=== PATIENT | female | born 1985 | race African-American/Black ===

== ENCOUNTER 2016-03-26 22:13 | Emergency (ER) | payer SELFPAY ==
[~2016-03-26] VITALS: Ht 162.6 cm; Wt 74.8 kg
[~2016-03-26 22:13] MED LIST: HYDR-971 PO; IBUP-1060 PO; PRED20TA PO
[2016-03-26 22:20] VITALS: BP 125/75
[2016-03-26] MEDS ORDERED: HYDROCODONE/APAP 5/325MG TABLET. PO ONE (23:00)
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
--- NOTE | 2016-03-27 07:35 | RAD ---
Indication: Chest pain. Time of exam 2302 hours. Comparison is made with prior chest from 03/25/2006. FINDINGS: The heart size is normal. The lungs are clear. No pleural effusion or pneumothorax is identified. The pulmonary vascularity is normal. IMPRESSION: No acute abnormality detected.
[2016-03-27] MEDS ORDERED: HYDR-2666 PO (12:28)
== END 2016-03-26 23:24 | disposition left against medical advice (07) ==
LOC: EEVIPCON 22:13 → ER 22:13
DX: S09.93XA Unspecified injury of face, initial encounter (principal); H92.02 Otalgia, left ear; Y04.0XXA Assault by unarmed brawl or fight, initial encounter; Y93.89 Activity, other specified; Y92.89 Other specified places as the place of occurrence of the external cause; Y99.8 Other external cause status
CPT/HCPCS: 70450; 70486; 71010; 99284-25

== ENCOUNTER 2016-03-27 09:45 | Emergency (ER) | payer SELFPAY ==
[2016-03-27 10:33] VITALS: BP 131/76
[2016-03-27] MEDS ORDERED: HYDROCODONE/APAP 5/325MG TABLET. PO ONE (11:30)
[2016-03-27] MEDS ORDERED: HYDR-2666 PO (12:28)
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
== END 2016-03-27 12:40 | disposition home or self-care (01) ==
LOC: ER 09:45
DX: S09.8XXA Other specified injuries of head, initial encounter (principal); F17.200 Nicotine dependence, unspecified, uncomplicated; Y08.89XA Assault by other specified means, initial encounter; Y93.89 Activity, other specified; Y92.89 Other specified places as the place of occurrence of the external cause; Y99.8 Other external cause status
CPT/HCPCS: 99283

== ENCOUNTER 2016-06-29 17:02 | Emergency (ER) | payer MEDICAID, OTHER ==
[~2016-06-29] VITALS: Ht 162.6 cm; Wt 63.5 kg
[~2016-06-29 17:02] MED LIST changes: +HYDR-2666 PO
[2016-06-29 17:17] VITALS: BP 125/65
[2016-06-29] MEDS ORDERED: ACETAMINOPHEN 500 MG TABLET PO ONE (17:45)
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
[2016-06-29] MEDS ORDERED: CYCLOBENZAPRINE 10 MG TABLET. PO ONE (18:30)
[2016-06-29] MEDS ORDERED: CYCL10TA2 PO (18:32)
== END 2016-06-29 18:43 | disposition home or self-care (01) ==
LOC: ER 17:02
DX: S13.9XXA Sprain of joints and ligaments of unspecified parts of neck, initial encounter (principal); R51 Headache; V49.59XA Passenger injured in collision with other motor vehicles in traffic accident, initial encounter; Y93.89 Activity, other specified; Y92.89 Other specified places as the place of occurrence of the external cause; Y99.8 Other external cause status
CPT/HCPCS: 70450; 81025; 99284-25

== ENCOUNTER 2017-01-10 08:56 | Emergency (ER) | payer OTHER ==
[~2017-01-10] VITALS: Ht 160 cm; Wt 63.5 kg
[~2017-01-10 08:56] MED LIST changes: +CYCL10TA2 PO; -HYDR-2666 PO; +HYDR-2758 PO
--- NOTE | 2017-01-10 09:12 | PHYS DOC ---
Past Medical History Past Medical History: Other Additional Past Medical Histor: CHRONIC HIVES Past Surgical History: Alcohol Use: Occasionally Drug Use: None Adult General Chief Complaint Chief Complaint: VAGINAL BLEEDING HPI HPI Patient is a 31 year old female with a history of ovarian cysts presents to the ED complaining of vaginal bleeding x 1 days. LMP 12/23/16. Complains of lower abdominal cramping and vaginal bleeding. Describes the pain as cramping. Rates the pain as 6/10. Passed some clots this morning. States she had her yearly check-up 2 weeks ago and everything came back normal. Denies STD exposure , dizziness, weakness, chest pain, shortness of breath, weakness, diarrhea. Review of Systems Review of Systems Constitutional: Denies fever or chills [] Eyes: Denies change in visual acuity, redness, or eye pain [] HENT: Denies nasal congestion or sore throat [] Respiratory: Denies cough or shortness of breath [] Cardiovascular: No additional information not addressed in HPI [] GI: Complains of abdominal pain. Denies nausea, vomiting, bloody stools or diarrhea [] : Complains of vaginal bleeding. Denies dysuria or hematuria [] Musculoskeletal: Denies back pain or joint pain [] Integument: Denies rash or skin lesions [] Neurologic: Denies headache, focal weakness or sensory changes [] Endocrine: Denies polyuria or polydipsia [] All other systems were reviewed and found to be within normal limits, except as documented in this note. Current Medications Current Medications Current Medications Medications (Trade) Dose Ordered Sig/Sedrick Start Time Stop Time Status Last Admin Dose Admin Naproxen (Naprosyn) 500 mg 1X ONCE 01/10/17 10:15 01/10/17 10:16 DC 01/10/17 10:21 500 MG Allergies Allergies Allergies Coded Allergies Type Severity Reaction Last Updated Verified No Known Drug Allergies 09/16/13 No Physical Exam Physical Exam Constitutional: Well developed, well nourished, no acute distress, non-toxic appearance. [] HENT: Normocephalic, atraumatic, bilateral external ears normal, oropharynx moist, no oral exudates, nose normal. [] Eyes: PERRLA, EOMI, conjunctiva normal, no discharge. [] Neck: Normal range of motion, no tenderness, supple, no stridor. [] Cardiovascular:Heart rate regular rhythm, no murmur [] Lungs & Thorax: Bilateral breath sounds clear to auscultation [] Abdomen: Bowel sounds normal, soft, MILD SUPRAPUBIC TENDERNESS. no masses, no pulsatile masses. [] Skin: Warm, dry, no erythema, no rash. [] Back: No tenderness, no CVA tenderness. [] Extremities: No tenderness, no cyanosis, no clubbing, ROM intact, no edema. [] Neurologic: Alert and oriented X 3, normal motor function, normal sensory function, no focal deficits noted. [] Psychologic: Affect normal, judgement normal, mood normal. [] Current Patient Data Vital Signs Vital Signs Date Time Temp Pulse Resp B/P (MAP) Pulse Ox O2 Delivery O2 Flow Rate FiO2 01/10/17 11:08 69 20 122/78 (93) 100 Room Air 01/10/17 09:05 98.3 98.3 Lab Values Laboratory Tests Test 01/10/17 09:00 01/10/17 09:12 01/10/17 09:20 Urine Collection Type Unknown Urine Color Yellow Urine Clarity Clear Urine pH 6.0 Urine Specific [place] >=1.030 Urine Protein Negative mg/dL (NEG-TRACE) Urine Glucose (UA) Negative mg/dL (NEG) Urine Ketones (Stick) Trace mg/dL (NEG) Urine Blood Trace (NEG) Urine Nitrite Negative (NEG) Urine Bilirubin Small (NEG) Urine Urobilinogen Dipstick 0.2 mg/dL (0.2 mg/dL) Urine Leukocyte Esterase Negative (NEG) Urine RBC Occ /HPF (0-2) Urine WBC 1-4 /HPF (0-4) Urine Squamous Epithelial Cells Many /LPF Urine Bacteria Mod /HPF (0-FEW) Urine Mucus Mod /LPF POC Urine HCG, Qualitative Hcg negative (Negative) White Blood Count 7.5 x10^3/uL (4.0-11.0) Red Blood Count 4.14 x10^6/uL (3.50-5.40) Hemoglobin 12.3 g/dL (12.0-15.5) Hematocrit 37.8 % (36.0-47.0) Mean Corpuscular Volume 91 fL (79-100) Mean Corpuscular Hemoglobin 30 pg (25-35) Mean Corpuscular Hemoglobin Concent 33 g/dL (31-37) Red Cell Distribution Width 14.2 % (11.5-14.5) Platelet Count 286 x10^3/uL (140-400) Sodium Level 140 mmol/L (136-145) Potassium Level 3.7 mmol/L (3.5-5.1) Chloride Level 104 mmol/L (98-107) Carbon Dioxide Level 28 mmol/L (21-32) Anion Gap 8 (6-14) Blood Urea Nitrogen 8 mg/dL (7-20) Creatinine 0.7 mg/dL (0.6-1.0) Estimated GFR (Cockcroft-Gault) 118.9 BUN/Creatinine Ratio 11 (6-20) Glucose Level 97 mg/dL (70-99) Calcium Level 8.9 mg/dL (8.5-10.1) Total Bilirubin 0.2 mg/dL (0.2-1.0) Aspartate Amino Transferase (AST) 15 U/L (15-37) Alanine Aminotransferase (ALT) 16 U/L (14-59) Alkaline Phosphatase 90 U/L (46-116) Total Protein 7.3 g/dL (6.4-8.2) Albumin 3.5 g/dL (3.4-5.0) Albumin/Globulin Ratio 0.9 (1.0-1.7) L Laboratory Tests 01/10/17 09:20 Laboratory Tests 01/10/17 09:20 EKG EKG [] Radiology/Procedures Radiology/Procedures PROCEDURE: PELVIS W/TV EXAM: Pelvic sonogram. HISTORY: Ovarian cyst. Vaginal bleeding. TECHNIQUE: Transabdominal and transvaginal sonographic imaging of the pelvis was performed. COMPARISON: 09/16/2013. FINDINGS: The uterus measures 10.0 x 4.8 x 6.0 cm. The endometrial stripe measures 5.7 mm in thickness. The right ovary measures 4.2 x 2.6 x 2.6 cm. The left ovary measures 4.3 x 2.2 x 2.7 cm. There is normal blood flow within both ovaries. There are small ovarian antral follicles. There is no pelvic free fluid. There may be a tiny nabothian cyst within the cervix. IMPRESSION: Relatively unremarkable pelvic sonogram. No ovarian cyst is seen and the endometrial stripe is normal in thickness. [] Course & Med Decision Making Course & Med Decision Making Pertinent Labs and Imaging studies reviewed. (See chart for details) []Discussed lab and ultrasound findings with patient. Patient's pain improved. Vital stable, no acute distress. On reexamination, abdomen is soft nontender nondistended. No peritoneal signs. Discussed follow-up with OIL SPREADER OPERATOR early next week. Tolerating PO. Provided contact information/education. Discussed reasons to return to the ED. Patient understands and agrees with plan. Dragon Disclaimer Dragon Disclaimer This electronic medical record was generated, in whole or in part, using a voice recognition dictation system. Departure Departure Impression: Primary Impression: Dysfunctional uterine bleeding Disposition: HOME, SELF-CARE Condition: IMPROVED Referrals: NO PCP (PCP) RONALDO ABBASI MD Patient Instructions: Uterine Bleeding, Dysfunctional Scripts Ondansetron (ZOFRAN ODT) 4 Mg Tab.rapdis 1 TAB SL Q8HRS, #15 TAB Prov: HERNÁN FISHER 01/10/17 Naproxen (NAPROSYN) 500 Mg Tablet 500 MG PO BID, #20 TAB Prov: HERNÁN FISHER 01/10/17 HERNÁN FISHER Jan 10, 2017 09:12
[2017-01-10 09:19] LABS: BILIRUBIN,URINE SMALL (NEG); GLUCOSE,URINE NEGATIVE (NEG); NITRITE,URINE NEGATIVE (NEG); PROTEIN,URINE NEGATIVE (NEG-TRACE); UROBILINOGEN,URINE 0.2 mg/dL (0.2 mg/dL)
[2017-01-10 09:29] LABS: BACTERIA,URINE MOD /HPF (0-FEW); RBC,URINE OCC /HPF (0-2); SQUAMOUS EPITHELIAL CELL,UR MANY /LPF
[2017-01-10 09:35] LABS: HEMATOCRIT 37.8 % (36.0-47.0); HEMOGLOBIN 12.3 g/dL (12.0-15.5); RED BLOOD COUNT 4.14 x10^6/uL (3.50-5.40); RED CELL DISTRIBUTION WIDTH 14.2 % (11.5-14.5); WHITE BLOOD COUNT 7.5 x10^3/uL (4.0-11.0)
[2017-01-10 09:40] LABS: CALCIUM 8.9 mg/dL (8.5-10.1); CREATININE 0.7 mg/dL (0.6-1.0); GFR 118.9; POTASSIUM 3.7 mmol/L (3.5-5.1)
[2017-01-10 09:46] LABS: ALBUMIN 3.5 g/dL (3.4-5.0); ALBUMIN/GLOBULIN RATIO 0.9 (1.0-1.7); TOTAL BILIRUBIN 0.2 mg/dL (0.2-1.0); TOTAL PROTEIN 7.3 g/dL (6.4-8.2)
[2017-01-10] MEDS ORDERED: NAPROXEN 500 MG TABLET PO ONE (10:15)
--- NOTE | 2017-01-10 10:55 | RAD ---
EXAM: Pelvic sonogram. HISTORY: Ovarian cyst. Vaginal bleeding. TECHNIQUE: Transabdominal and transvaginal sonographic imaging of the pelvis was performed. COMPARISON: 09/16/2013. FINDINGS: The uterus measures 10.0 x 4.8 x 6.0 cm. The endometrial stripe measures 5.7 mm in thickness. The right ovary measures 4.2 x 2.6 x 2.6 cm. The left ovary measures 4.3 x 2.2 x 2.7 cm. There is normal blood flow within both ovaries. There are small ovarian antral follicles. There is no pelvic free fluid. There may be a tiny nabothian cyst within the cervix. IMPRESSION: Relatively unremarkable pelvic sonogram. No ovarian cyst is seen and the endometrial stripe is normal in thickness.
[2017-01-10] MEDS ORDERED: ONDA4TAB10 SL (11:07)
[2017-01-10] MEDS ORDERED: NAPR500T PO (11:07)
[2017-01-10 11:08] VITALS: BP 122/78
== END 2017-01-10 11:11 | disposition home or self-care (01) ==
LOC: ER 08:56
DX: N93.8 Other specified abnormal uterine and vaginal bleeding (principal); R10.30 Lower abdominal pain, unspecified
CPT/HCPCS: 36415; 76830; 76856; 80053; 81001; 81025; 85027; 87491; 87591; 99285-25

== ENCOUNTER 2017-01-27 08:07 | Emergency (ER) | payer OTHER ==
[~2017-01-27] VITALS: Ht 160 cm; Wt 63.5 kg
[~2017-01-27 08:07] MED LIST changes: +NAPR500T PO; +ONDA4TAB10 SL
[2017-01-27] MEDS ORDERED: KETOROLAC 30 MG/ML INJ. IV ONE (08:30)
[2017-01-27] MEDS ORDERED: ONDANSETRON PF 4 MG/2 ML VIAL. IV ONE (08:30)
[2017-01-27 08:42] LABS: BILIRUBIN,URINE NEGATIVE (NEG); GLUCOSE,URINE NEGATIVE (NEG); NITRITE,URINE NEGATIVE (NEG); PH,URINE 5.5; PROTEIN,URINE NEGATIVE (NEG-TRACE); UROBILINOGEN,URINE 0.2 mg/dL (0.2 mg/dL)
--- NOTE | 2017-01-27 08:49 | PHYS DOC ---
Past Medical History Past Medical History: Other Additional Past Medical Histor: CHRONIC HIVES, OVARIAN CYSTS Past Surgical History: Additional Information: "Wearing the patch. Trying to quit smoking." Alcohol Use: Occasionally Drug Use: None Adult General Chief Complaint Chief Complaint: ABDOMINAL PAIN HPI HPI Patient is a 31 year old female with history of ovarian cyst who presents today with 8 out of 10 pulling and stretching pain on the right lower quadrant radiating to the right low back that has been going on since January 20, 2017. Patient denies any known injury. Denies any vaginal bleeding. Denies any urgency frequency or dysuria. She states she could be because she has been trying to be , she is a . She has not missed her menstrual cycle. She states she actually bled twice in December. She states she had a full cycle that ended January 11 then had spotting on January 20, 2017. Patient denies any concerns for STDs. Denies any unusual vaginal discharge. She states she was nauseated 2 days ago and had a subjective fever. Review of Systems Review of Systems Constitutional: Reports subjective fever 2 days ago. Eyes: Denies change in visual acuity, redness, or eye pain [] HENT: Denies nasal congestion or sore throat [] Respiratory: Denies cough or shortness of breath [] Cardiovascular: No additional information not addressed in HPI [] GI: Reports right lower quadrant pulling and stretching pain, and nausea, denies vomiting, bloody stools or diarrhea [] : Denies dysuria or hematuria [] Musculoskeletal: Denies back pain or joint pain [] Integument: Denies rash or skin lesions [] Neurologic: Denies headache, focal weakness or sensory changes [] All other systems were reviewed and found to be within normal limits, except as documented in this note. Current Medications Current Medications Current Medications Medications (Trade) Dose Ordered Sig/Sedrick Start Time Stop Time Status Last Admin Dose Admin Info (Do NOT chart on this entry -- for MONITORING) 1 each PRN DAILY PRN 01/27/17 09:15 01/27/17 16:38 DC Iohexol (Omnipaque 300 Mg/ml) 75 ml 1X ONCE 01/27/17 09:00 01/27/17 09:01 DC 01/27/17 09:39 75 ML Ketorolac Tromethamine (Toradol) 30 mg 1X ONCE 01/27/17 08:30 01/27/17 08:32 DC 01/27/17 09:32 30 MG Ondansetron HCl (Zofran) 4 mg 1X ONCE 01/27/17 08:30 01/27/17 08:32 DC 01/27/17 09:31 4 MG Allergies Allergies Allergies Coded Allergies Type Severity Reaction Last Updated Verified No Known Drug Allergies 09/16/13 No Physical Exam Physical Exam Constitutional: Well developed, well nourished, no acute distress, non-toxic appearance. [] HENT: Normocephalic, atraumatic, bilateral external ears normal, oropharynx moist, no oral exudates, nose normal. [] Eyes: PERRLA, EOMI, conjunctiva normal, no discharge. [] Neck: Normal range of motion, no tenderness, supple, no stridor. [] Cardiovascular:Heart rate regular rhythm, no murmur [] Lungs & Thorax: Bilateral breath sounds clear to auscultation [] Abdomen: Bowel sounds normal, soft, no tenderness, no masses, no pulsatile masses. [] Pelvic exam External pelvic appears normal, cervix is closed, no CMT, no adnexal tenderness , small amount of white discharge in the vaginal vault Skin: Warm, dry, no erythema, no rash. [] Back: No tenderness, no CVA tenderness. [] Extremities: No tenderness, no cyanosis, no clubbing, ROM intact, no edema. [] Neurologic: Alert and oriented X 3, normal motor function, normal sensory function, no focal deficits noted. [] Psychologic: Affect normal, judgement normal, mood normal. [] Current Patient Data Vital Signs Vital Signs Date Time Temp Pulse Resp B/P (MAP) Pulse Ox O2 Delivery O2 Flow Rate FiO2 01/27/17 11:15 65 18 100/52 (68) 98 Room Air 01/27/17 08:16 98.4 98.4 Lab Values Laboratory Tests Test 01/27/17 08:15 01/27/17 08:32 01/27/17 09:22 Urine Collection Type Void Urine Color Yellow Urine Clarity Clear Urine pH 5.5 Urine Specific [place] 1.010 Urine Protein Negative mg/dL (NEG-TRACE) Urine Glucose (UA) Negative mg/dL (NEG) Urine Ketones (Stick) Negative mg/dL (NEG) Urine Blood Negative (NEG) Urine Nitrite Negative (NEG) Urine Bilirubin Negative (NEG) Urine Urobilinogen Dipstick 0.2 mg/dL (0.2 mg/dL) Urine Leukocyte Esterase Negative (NEG) Urine RBC Occ /HPF (0-2) Urine WBC Occ /HPF (0-4) Urine Squamous Epithelial Cells Mod /LPF Urine Bacteria Few /HPF (0-FEW) Urine Mucus Slight /LPF Urine Opiates Screen Neg (NEG) Urine Methadone Screen Neg (NEG) Urine Barbiturates Neg (NEG) Urine Phencyclidine Screen Neg (NEG) Urine Amphetamine/Methamphetamine Neg (NEG) Urine Benzodiazepines Screen Pos (NEG) Urine Cocaine Screen Pos (NEG) Urine Cannabinoids Screen Neg (NEG) Urine Ethyl Alcohol Neg (NEG) POC Urine HCG, Qualitative Hcg negative (Negative) White Blood Count 7.3 x10^3/uL (4.0-11.0) Red Blood Count 4.24 x10^6/uL (3.50-5.40) Hemoglobin 12.5 g/dL (12.0-15.5) Hematocrit 38.5 % (36.0-47.0) Mean Corpuscular Volume 91 fL (79-100) Mean Corpuscular Hemoglobin 30 pg (25-35) Mean Corpuscular Hemoglobin Concent 33 g/dL (31-37) Red Cell Distribution Width 14.7 % (11.5-14.5) H Platelet Count 280 x10^3/uL (140-400) Neutrophils (%) (Auto) 60 % (31-73) Lymphocytes (%) (Auto) 30 % (24-48) Monocytes (%) (Auto) 6 % (0-9) Eosinophils (%) (Auto) 4 % (0-3) H Basophils (%) (Auto) 1 % (0-3) Neutrophils # (Auto) 4.4 x10^3uL (1.8-7.7) Lymphocytes # (Auto) 2.2 x10^3/uL (1.0-4.8) Monocytes # (Auto) 0.4 x10^3/uL (0.0-1.1) Eosinophils # (Auto) 0.3 x10^3/uL (0.0-0.7) Basophils # (Auto) 0.0 x10^3/uL (0.0-0.2) Sodium Level 138 mmol/L (136-145) Potassium Level 4.1 mmol/L (3.5-5.1) Chloride Level 104 mmol/L (98-107) Carbon Dioxide Level 25 mmol/L (21-32) Anion Gap 9 (6-14) Blood Urea Nitrogen 7 mg/dL (7-20) Creatinine 0.6 mg/dL (0.6-1.0) Estimated GFR (Cockcroft-Gault) 142.0 BUN/Creatinine Ratio 12 (6-20) Glucose Level 99 mg/dL (70-99) Calcium Level 9.3 mg/dL (8.5-10.1) Total Bilirubin 0.2 mg/dL (0.2-1.0) Aspartate Amino Transferase (AST) 13 U/L (15-37) L Alanine Aminotransferase (ALT) 19 U/L (14-59) Alkaline Phosphatase 85 U/L (46-116) Total Protein 7.8 g/dL (6.4-8.2) Albumin 3.7 g/dL (3.4-5.0) Albumin/Globulin Ratio 0.9 (1.0-1.7) L Lipase 102 U/L (73-393) Ethyl Alcohol Level < 10 mg/dL (0-10) Laboratory Tests 01/27/17 09:22 Laboratory Tests 01/27/17 09:22 Microbiology 01/27/17 Wet Prep - Final, Complete EKG EKG [] Radiology/Procedures Radiology/Procedures []PROCEDURE: CT ABD PELV W/ IV CONTRST ONLY CT of the abdomen and pelvis with contrast, 01/27/2017: History: Right lower quadrant and pelvic pain Multidetector CT imaging was performed following an IV bolus injection of iodinated contrast material. No oral contrast material was administered for this study. No hepatic abnormality is detected. The gallbladder is unremarkable. No pancreatic abnormality is seen. The spleen is of normal size. The kidneys show no evidence of obstruction or mass. The abdominal aorta is unremarkable. No abdominal or pelvic adenopathy is seen. The bowel loops are not dilated. The cecum is low-lying. A portion of the appendix is visualized and it shows no abnormality. No pericecal inflammatory process is seen. A 19 mm area of irregular rim-like enhancement is noted in the left adnexa. This is presumably an ovarian cyst. No free air or significant free fluid is evident in the abdomen or pelvis. IMPRESSION: 1. Small left ovary and cyst. 2. No acute abdominal or pelvic abnormality is detected. PQRS Compliance Statement: One or more of the following individualized dose reduction techniques were utilized for this examination: 1. Automated exposure control 2. Adjustment of the mA and/or kV according to patient size 3. Use of iterative reconstruction technique DICTATED and SIGNED BY: CAROLIN MERCHANT MD DATE: 01/27/17 1004 CC: JABIER STEWART APRN; NO PCP ~ Course & Med Decision Making Course & Med Decision Making Pertinent Labs and Imaging studies reviewed. (See chart for details) Patient is in the ED with complaints of right lower quadrant pulling and stretching pain. She is also concerned she could be though she has not missed her menstrual cycle. Negative urine hCG. Labs with no acute findings. Wet prep positive for BV. Patient will be discharged with Flagyl. CT of the abdomen and pelvic was negative for any acute findings but noted for a small left ovarian cyst. Patient will be discharged with instructions to take Tylenol Motrin for her pain. Follow-up with her own doctor especially an PARAMEDICAL AIDE she sees Dr. Abbasi. Larissa Disclaimer Larissa Disclaimer This electronic medical record was generated, in whole or in part, using a voice recognition dictation system. Departure Departure Impression: Primary Impression: Left ovarian cyst Additional Impression: Bacterial vaginosis Disposition: 01 HOME, SELF-CARE Condition: STABLE Referrals: NO PCP (PCP) RONALDO ABBASI MD follow up in 1-2 weeks Patient Instructions: Abdominal Pain, Bacterial Vaginosis, [id number], Ovarian Cyst Additional Instructions: You were seen for abdominal pain. Your CT of the abdomen was noted for a small left ovarian cyst, take Tylenol/Motrin for pain or fever. You also have bacterial vaginosis, we put you on antibiotics, ensure you complete them. Follow -up with an PARAMEDICAL AIDE for the ovarian cyst in the next 1-2 weeks. Follow-up with the primary care doctor in the next 1-2 weeks. Scripts Metronidazole (FLAGYL) 500 Mg Tablet 1 TAB PO BID, #14 TAB Prov: JABIER STEWART APRN 01/27/17 Problem Qualifiers JABIER STEWART APRN Jan 27, 2017 08:49
[2017-01-27 08:54] LABS: BARBITURATES NEG (NEG); BENZODIAZEPINES POS (NEG); CANNABINOIDS NEG (NEG); COCAINE POS (NEG); METHADONE NEG (NEG); OPIATES NEG (NEG); PHENCYCLIDINE NEG (NEG)
[2017-01-27 08:56] LABS: BACTERIA,URINE FEW /HPF (0-FEW); RBC,URINE OCC /HPF (0-2); SQUAMOUS EPITHELIAL CELL,UR MOD /LPF; WBC,URINE OCC /HPF (0-4)
[2017-01-27] MEDS ORDERED: IOHEXOL 300 MG/ML 100ML VIAL. IV ONE (09:00)
[2017-01-27] MEDS ORDERED: CONTRAST GIVEN MC PRN (09:15)
[2017-01-27 09:40] LABS: BASO % 1 % (0-3); EOS % 4 % (0-3); HEMATOCRIT 38.5 % (36.0-47.0); HEMOGLOBIN 12.5 g/dL (12.0-15.5); LYMPH # 2.2 x10^3/uL (1.0-4.8); LYMPH % 30 % (24-48); MEAN CORPUSCULAR HEMOGLOBIN 30 pg (25-35); MEAN CORPUSCULAR HGB CONC 33 g/dL (31-37); MEAN CORPUSCULAR VOLUME 91 fL (79-100); MONO % 6 % (0-9); NEUT % 60 % (31-73); PLATELET COUNT 280 x10^3/uL (140-400); RED BLOOD COUNT 4.24 x10^6/uL (3.50-5.40); RED CELL DISTRIBUTION WIDTH 14.7 % (11.5-14.5); WHITE BLOOD COUNT 7.3 x10^3/uL (4.0-11.0)
[2017-01-27 10:04] LABS: CALCIUM 9.3 mg/dL (8.5-10.1); CREATININE 0.6 mg/dL (0.6-1.0); POTASSIUM 4.1 mmol/L (3.5-5.1)
[2017-01-27 10:06] LABS: ALBUMIN 3.7 g/dL (3.4-5.0); ALBUMIN/GLOBULIN RATIO 0.9 (1.0-1.7); TOTAL BILIRUBIN 0.2 mg/dL (0.2-1.0); TOTAL PROTEIN 7.8 g/dL (6.4-8.2)
--- NOTE | 2017-01-27 10:16 | RAD ---
CT of the abdomen and pelvis with contrast, 01/27/2017: History: Right lower quadrant and pelvic pain Multidetector CT imaging was performed following an IV bolus injection of iodinated contrast material. No oral contrast material was administered for this study. No hepatic abnormality is detected. The gallbladder is unremarkable. No pancreatic abnormality is seen. The spleen is of normal size. The kidneys show no evidence of obstruction or mass. The abdominal aorta is unremarkable. No abdominal or pelvic adenopathy is seen. The bowel loops are not dilated. The cecum is low-lying. A portion of the appendix is visualized and it shows no abnormality. No pericecal inflammatory process is seen. A 19 mm area of irregular rim-like enhancement is noted in the left adnexa. This is presumably an ovarian cyst. No free air or significant free fluid is evident in the abdomen or pelvis. IMPRESSION: 1. Small left ovary and cyst. 2. No acute abdominal or pelvic abnormality is detected. PQRS Compliance Statement: One or more of the following individualized dose reduction techniques were utilized for this examination: 1. Automated exposure control 2. Adjustment of the mA and/or kV according to patient size 3. Use of iterative reconstruction technique
[2017-01-27] MEDS ORDERED: METR500T PO (10:56)
[2017-01-27 11:15] VITALS: BP 100/52
== END 2017-01-27 11:25 | disposition home or self-care (01) ==
LOC: ER 08:07
DX: N83.202 Unspecified ovarian cyst, left side (principal); N76.0 Acute vaginitis; B96.89 Other specified bacterial agents as the cause of diseases classified elsewhere; F17.200 Nicotine dependence, unspecified, uncomplicated
CPT/HCPCS: 36415; 74177; 80053; 80307; 81001; 81025; 83690; 85025; 87491; 87591; 96374; 96375; 99285; G0480; J1885; J2405; Q0111; Q9967; G0479

== ENCOUNTER 2017-04-20 16:59 | Emergency (ER) | payer OTHER | END 2017-04-20 18:06 | disposition home or self-care (01) | LOC: ER 16:59 | DX: S46.911A Strain of unspecified muscle, fascia and tendon at shoulder and upper arm level, right arm, initial encounter (principal); X58.XXXA Exposure to other specified factors, initial encounter; Y93.89 Activity, other specified; Y99.8 Other external cause status; Y92.89 Other specified places as the place of occurrence of the external cause | CPT/HCPCS: 99283 ==

== ENCOUNTER 2017-04-27 07:02 | Emergency (ER) | payer OTHER ==
[2017-04-27] MEDS: ALBUTEROL SULFATE 2.5 MG/3 ML NEBU. NEB (08:06)
[2017-04-27] MEDS: predniSONE 20 MG TABLET PO (08:18)
== END 2017-04-27 08:30 | disposition home or self-care (01) ==
LOC: ER 07:02
DX: L50.8 Other urticaria (principal); E11.9 Type 2 diabetes mellitus without complications
CPT/HCPCS: 94640; 99283; J7512; J7613

== ENCOUNTER 2017-06-11 07:20 | Emergency (ER) | payer OTHER ==
[2017-06-11 07:45] LABS: URINE HCG POC HCG NEGATIVE (Negative)
[2017-06-11 07:54] LABS: ADD MAN DIFF? NO
[2017-06-11] MEDS: ONDANSETRON PF 4 MG/2 ML VIAL. IV (08:00)
[2017-06-11] MEDS: IV NORMAL SALINE 1000ML BAG 1,000 ML IV (08:00)
[2017-06-11 08:05] LABS: BASO % 1 % (0-3); BILIRUBIN,URINE NEGATIVE (NEG); CLARITY,URINE CLEAR; EOS # 0.1 x10^3/uL (0.0-0.7); EOS % 2 % (0-3); GLUCOSE,URINE NEGATIVE (NEG); HEMATOCRIT 37.7 % (36.0-47.0); HEMOGLOBIN 12.5 g/dL (12.0-15.5); LYMPH % 41 % (24-48); MEAN CORPUSCULAR HEMOGLOBIN 30 pg (25-35); MEAN CORPUSCULAR HGB CONC 33 g/dL (31-37); MEAN CORPUSCULAR VOLUME 90 fL (79-100); MONO # 0.5 x10^3/uL (0.0-1.1); MONO % 7 % (0-9); NEUT # 3.7 x10^3uL (1.8-7.7); NEUT % 50 % (31-73); NITRITE,URINE NEGATIVE (NEG); PH,URINE 6.5; PLATELET COUNT 259 x10^3/uL (140-400); PROTEIN,URINE NEGATIVE (NEG-TRACE); RED BLOOD COUNT 4.19 x10^6/uL (3.50-5.40); UROBILINOGEN,URINE 0.2 mg/dL (0.2 mg/dL); WHITE BLOOD COUNT 7.3 x10^3/uL (4.0-11.0)
[2017-06-11 08:06] LABS: ANION GAP 6 (6-14); BLOOD UREA NITROGEN 10 mg/dL (7-20); BUN/CREATININE RATIO 14 (6-20); CALCIUM 9.6 mg/dL (8.5-10.1); CARBON DIOXIDE 27 mmol/L (21-32); CHLORIDE 103 mmol/L (98-107); CREATININE 0.7 mg/dL (0.6-1.0); GFR 118.1; GLUCOSE 108 mg/dL (70-99); SODIUM 136 mmol/L (136-145)
[2017-06-11 08:15] LABS: TOTAL PROTEIN 7.7 g/dL (6.4-8.2)
[2017-06-11] MEDS ORDERED: CONTRAST GIVEN MC (08:15)
[2017-06-11 08:16] LABS: ALBUMIN 3.6 g/dL (3.4-5.0); ALBUMIN/GLOBULIN RATIO 0.9 (1.0-1.7); ALK PHOS 96 U/L (46-116); ALT (SGPT) 20 U/L (14-59); AST (SGOT) 17 U/L (15-37); TOTAL BILIRUBIN 0.2 mg/dL (0.2-1.0)
[2017-06-11 08:17] LABS: LIPASE 178 U/L (73-393)
[2017-06-11 08:22] LABS: BACTERIA,URINE FEW /HPF (0-FEW); COLOR,URINE STRAW; RBC,URINE RARE /HPF (0-2); WBC,URINE RARE /HPF (0-4)
[2017-06-11 08:23] LABS: SQUAMOUS EPITHELIAL CELL,UR FEW /LPF
[2017-06-11] MEDS: IOHEXOL 300 MG/ML 100ML VIAL. IV (08:35)
== END 2017-06-11 09:39 | disposition home or self-care (01) ==
LOC: ER 07:20
DX: R11.2 Nausea with vomiting, unspecified (principal); M54.5 Low back pain; R10.31 Right lower quadrant pain; E11.9 Type 2 diabetes mellitus without complications; Z98.890 Other specified postprocedural states
CPT/HCPCS: 36415; 74177; 80053; 81001; 81025; 83690; 84702; 85025; 96361; 96374; 99285-25; J2405; J7030; Q9967

== ENCOUNTER 2017-10-05 10:15 | Emergency (ER) | payer OTHER ==
[2017-10-05 10:36] LABS: URINE HCG POC HCG NEGATIVE (Negative)
[2017-10-05 10:43] LABS: ADD MAN DIFF? NO
[2017-10-05 10:50] LABS: BASO # 0.1 x10^3/uL (0.0-0.2); BASO % 1 % (0-3); EOS # 0.2 x10^3/uL (0.0-0.7); EOS % 2 % (0-3); HEMATOCRIT 40.6 % (36.0-47.0); HEMOGLOBIN 13.5 g/dL (12.0-15.5); LYMPH # 3.3 x10^3/uL (1.0-4.8); LYMPH % 38 % (24-48); MEAN CORPUSCULAR HEMOGLOBIN 30 pg (25-35); MEAN CORPUSCULAR HGB CONC 33 g/dL (31-37); MEAN CORPUSCULAR VOLUME 90 fL (79-100); MONO # 0.4 x10^3/uL (0.0-1.1); MONO % 5 % (0-9); NEUT # 4.7 x10^3uL (1.8-7.7); NEUT % 54 % (31-73); PLATELET COUNT 263 x10^3/uL (140-400); WHITE BLOOD COUNT 8.7 x10^3/uL (4.0-11.0)
[2017-10-05 10:59] LABS: ANION GAP 11 (6-14); BLOOD UREA NITROGEN 6 mg/dL (7-20); BUN/CREATININE RATIO 8 (6-20); CALCIUM 8.8 mg/dL (8.5-10.1); CARBON DIOXIDE 26 mmol/L (21-32); CHLORIDE 103 mmol/L (98-107); CREATININE 0.8 mg/dL (0.6-1.0); GFR 101.2; GLUCOSE 118 mg/dL (70-99); POTASSIUM 3.9 mmol/L (3.5-5.1); SODIUM 140 mmol/L (136-145)
[2017-10-05] MEDS: fentaNYL PF VIAL 100 MCG/2 ML VIAL IV (10:59)
[2017-10-05] MEDS: KETOROLAC 30 MG/ML INJ. IV (11:00)
[2017-10-05] MEDS: ONDANSETRON PF 4 MG/2 ML VIAL. IV (11:00)
[2017-10-05 11:02] LABS: ALBUMIN 3.8 g/dL (3.4-5.0); ALK PHOS 88 U/L (46-116); ALT (SGPT) 19 U/L (14-59); AST (SGOT) 15 U/L (15-37); TOTAL BILIRUBIN 0.2 mg/dL (0.2-1.0); TOTAL PROTEIN 7.6 g/dL (6.4-8.2)
[2017-10-05 11:32] LABS: BILIRUBIN,URINE NEGATIVE (NEG); CLARITY,URINE CLEAR; COLOR,URINE YELLOW; GLUCOSE,URINE NEGATIVE (NEG); NITRITE,URINE NEGATIVE (NEG); PH,URINE 5.5; PROTEIN,URINE NEGATIVE (NEG-TRACE); UROBILINOGEN,URINE 0.2 mg/dL (0.2 mg/dL)
[2017-10-05 11:39] LABS: BARBITURATES NEG (NEG); BENZODIAZEPINES POS (NEG); CANNABINOIDS NEG (NEG); COCAINE POS (NEG); METHADONE NEG (NEG); OPIATES NEG (NEG); PHENCYCLIDINE NEG (NEG)
[2017-10-05 11:41] LABS: AMPHETAMINE/METHAMPHETAMINE NEG (NEG); ETHANOL, URINE NEG (NEG)
[2017-10-05 11:46] LABS: SQUAMOUS EPITHELIAL CELL,UR MANY /LPF
[2017-10-05 11:47] LABS: BACTERIA,URINE MODERATE /HPF (0-FEW); RBC,URINE OCC /HPF (0-2)
[2017-10-05] MEDS: cefTRIAXone IM 250 MG VIAL IM (11:54)
[2017-10-05] MEDS: AZITHROMYCIN 250 MG TABLET. PO (11:54)
[2017-10-06 14:35] LABS: CHLAMYDIA PROBE Negative (Negative); GC PROBE Negative (Negative)
== END 2017-10-05 12:47 | disposition home or self-care (01) ==
LOC: ER 10:15
DX: N76.0 Acute vaginitis (principal); B96.89 Other specified bacterial agents as the cause of diseases classified elsewhere; A64 Unspecified sexually transmitted disease; E11.9 Type 2 diabetes mellitus without complications
CPT/HCPCS: 36415; 80053; 80307; 81001; 81025; 85025; 87086; 87491; 87591; 96372; 96374; 96375; 99284-25; J0696; J1885; J2405; J3010; Q0111; Q0144

== ENCOUNTER 2017-11-16 07:26 | Emergency (ER) | payer OTHER ==
[~2017-11-16] VITALS: Ht 162.6 cm; Wt 63.5 kg
[~2017-11-16 07:26] MED LIST changes: +CYCL5TAB PO; +METR500T PO; +METR500T8 PO; +NAPR-683 PO; -NAPR500T PO
[2017-11-16 07:45] VITALS: BP 140/61
[2017-11-16] MEDS ORDERED: HYDR25CA PO (08:04)
[2017-11-16] MEDS ORDERED: PRED20TA PO (08:04)
--- NOTE | 2017-11-16 08:04 | PHYS DOC ---
Past Medical History Past Medical History: Diabetes-Type II, Other Additional Past Medical Histor: CHRONIC HIVES, OVARIAN CYSTS Past Surgical History: Alcohol Use: Occasionally Drug Use: None Adult General Chief Complaint Chief Complaint: SKIN PROBLEM HPI HPI Patient is a 32 year old female presented to the ER today for evaluation of itching rash that just started this morning when she woke up. Patient has this chronic condition for 2 years, she was evaluated by enamel applier already, not figure out what the cause. Patient is currently not on any medication for it. Patient denied any chest pain, no shortness of air, no fever, no cough, no throat swelling or tongue swelling. She has not taken any new medications. Review of Systems Review of Systems Constitutional: Denies fever or chills [] Eyes: Denies change in visual acuity, redness, or eye pain [] HENT: Denies nasal congestion or sore throat [] Respiratory: Denies cough or shortness of breath [] Cardiovascular: No additional information not addressed in HPI [] GI: Denies abdominal pain, nausea, vomiting, bloody stools or diarrhea [] : Denies dysuria or hematuria [] Musculoskeletal: Denies back pain or joint pain [] Integument: Positive for itching, rash. Neurologic: Denies headache, focal weakness or sensory changes [] Endocrine: Denies polyuria or polydipsia [] All other systems were reviewed and found to be within normal limits, except as documented in this note. Current Medications Current Medications Current Medications Medications (Trade) Dose Ordered Sig/Sedrick Start Time Stop Time Status Last Admin Dose Admin Diphenhydramine HCl (Benadryl) 25 mg 1X ONCE 11/16/17 08:30 11/16/17 08:31 DC 11/16/17 08:20 25 MG Methylprednisolone Sodium Succinate (SOLU-Medrol 125MG VIAL) 125 mg 1X ONCE 11/16/17 08:30 11/16/17 08:31 DC 11/16/17 08:20 125 MG Allergies Allergies Allergies Coded Allergies Type Severity Reaction Last Updated Verified No Known Drug Allergies 09/16/13 No Physical Exam Physical Exam Constitutional: Well developed, well nourished, no acute distress, non-toxic appearance. [] HENT: Normocephalic, atraumatic, bilateral external ears normal, oropharynx moist, no oral exudates, nose normal. NO TONGUE SWELLING,NO LIP SWELLING Eyes: PERRLA, EOMI, conjunctiva normal, no discharge. No eye swelling. Neck: Normal range of motion, no tenderness, supple, no stridor. [] Cardiovascular:Heart rate regular rhythm, no murmur [] Lungs & Thorax: Bilateral breath sounds clear to auscultation [] Abdomen: Bowel sounds normal, soft, no tenderness, no masses, no pulsatile masses. [] Skin: diffused hives on trunk, chest, extremities, Back: No tenderness, no CVA tenderness. [] Extremities: No tenderness, no cyanosis, no clubbing, ROM intact, no edema. [] Neurologic: Alert and oriented X 3, normal motor function, normal sensory function, no focal deficits noted. [] Psychologic: Affect normal, judgement normal, mood normal. [] Current Patient Data Vital Signs Vital Signs Date Time Temp Pulse Resp B/P (MAP) Pulse Ox O2 Delivery O2 Flow Rate FiO2 11/16/17 07:45 98.9 71 14 140/61 (87) 100 Room Air 98.9 EKG EKG [] Radiology/Procedures Radiology/Procedures [] Course & Med Decision Making Course & Med Decision Making Pertinent Labs and Imaging studies reviewed. (See chart for details) [] Dragon Disclaimer Dragon Disclaimer This electronic medical record was generated, in whole or in part, using a voice recognition dictation system. Departure Departure Impression: Primary Impression: Urticaria Disposition: 01 HOME, SELF-CARE Condition: STABLE Referrals: NO PCP (PCP) follow up with an allergy doctor for further evaluation and treatment Patient Instructions: Hives Scripts Hydroxyzine Pamoate (VISTARIL) 25 Mg Capsule 1 CAP PO TID PRN for ITCHING, #30 CAP 1 Refill Prov: ANNA PARRISH DO 11/16/17 Prednisone (PREDNISONE) 20 Mg Tablet 1 TAB PO DAILY, #10 TAB Prov: ANNA PARRISH DO 11/16/17 ANNA PARRISH DO Nov 16, 2017 08:04
[2017-11-16] MEDS ORDERED: methylPREDNISolone SOD SUCC PF 125 MG/2 ML VIAL. IM ONE (08:30)
[2017-11-16] MEDS ORDERED: diphenhydrAMINE 50 MG/ML VIAL IM ONE (08:30)
== END 2017-11-16 09:03 | disposition home or self-care (01) ==
LOC: ER 07:26
DX: L50.9 Urticaria, unspecified (principal); E11.9 Type 2 diabetes mellitus without complications
CPT/HCPCS: 96372; 99284; J1200; J2930

== ENCOUNTER 2017-11-29 12:10 | Emergency (ER) | payer OTHER ==
[~2017-11-29] VITALS: Ht 160 cm; Wt 63.5 kg
[~2017-11-29 12:10] MED LIST changes: +HYDR25CA PO
[2017-11-29 12:55] VITALS: BP 113/58
[2017-11-29] MEDS ORDERED: diphenhydrAMINE HCL 25 MG CAPSULE PO ONE ×2 (13:15)
[2017-11-29] MEDS ORDERED: FAMOTIDINE 20 MG TABLET. PO ONE ×2 (13:15)
[2017-11-29] MEDS ORDERED: methylPREDNISolone SOD SUCC PF 125 MG/2 ML VIAL. IM ONE ×2 (13:15)
[2017-11-29] MEDS ORDERED: FAMO20TA5 PO (13:25)
[2017-11-29] MEDS ORDERED: PRED-220 PO (13:25)
[2017-11-29] MEDS ORDERED: HYDR25TA PO (13:25)
--- NOTE | 2017-11-29 13:25 | PHYS DOC ---
Past Medical History Past Medical History: Diabetes-Type II, Other Additional Past Medical Histor: CHRONIC HIVES, OVARIAN CYSTS Past Surgical History: Alcohol Use: Occasionally Drug Use: None Adult General Chief Complaint Chief Complaint: SKIN PROBLEM HPI HPI Patient is a 32 year old female who presents with chronic hives. Patient states the hives usually come and go. She states this episode she noted this morning. She states she usually has to be put on prednisone to reduce some of the hives, she states she has seen a soundscriber mechanic over the hives but they could not find any cause and how to get rid of them completely. Review of Systems Review of Systems Constitutional: Denies fever or chills []] Musculoskeletal: Denies back pain or joint pain [] Integument: Reports hives. Neurologic: Denies headache, focal weakness or sensory changes [] All other systems were reviewed and found to be within normal limits, except as documented in this note. Current Medications Current Medications Current Medications Medications (Trade) Dose Ordered Sig/Sedrick Start Time Stop Time Status Last Admin Dose Admin Diphenhydramine HCl (Benadryl) 25 mg 1X ONCE 11/29/17 13:15 11/29/17 13:16 DC Famotidine (Pepcid) 20 mg 1X ONCE 11/29/17 13:15 11/29/17 13:16 DC Methylprednisolone Sodium Succinate (SOLU-Medrol 125MG VIAL) 125 mg 1X ONCE 11/29/17 13:15 11/29/17 13:16 DC Allergies Allergies Allergies Coded Allergies Type Severity Reaction Last Updated Verified No Known Drug Allergies 09/16/13 No Physical Exam Physical Exam Constitutional: Well developed, well nourished, no acute distress, non-toxic appearance. [] HENT: Normocephalic, atraumatic, bilateral external ears normal, oropharynx moist, no oral exudates, nose normal. Airway is open Eyes: PERRLA, EOMI, conjunctiva normal, no discharge. [] Neck: Normal range of motion, no tenderness, supple, no stridor. [] Cardiovascular:Heart rate regular rhythm, no murmur [] Lungs & Thorax: Bilateral breath sounds clear to auscultation [] Abdomen: Bowel sounds normal, soft, no tenderness, no masses, no pulsatile masses. [] Skin: Warm, dry, patient is covered with erythematous hives throughout her body. Back: No tenderness, no CVA tenderness. [] Extremities: No tenderness, no cyanosis, no clubbing, ROM intact, no edema. [] Neurologic: Alert and oriented X 3, normal motor function, normal sensory function, no focal deficits noted. [] Psychologic: Affect normal, judgement normal, mood normal. [] Current Patient Data Vital Signs Vital Signs Date Time Temp Pulse Resp B/P (MAP) Pulse Ox O2 Delivery O2 Flow Rate FiO2 11/29/17 12:55 98.7 93 14 113/58 (76) 99 Room Air 98.7 EKG EKG [] Radiology/Procedures Radiology/Procedures [] Course & Med Decision Making Course & Med Decision Making Pertinent Labs and Imaging studies reviewed. (See chart for details) This is a 32-year-old female patient presenting to the ED today with hives. Hives are chronic but get worse occasionally. Patient was put on prednisone which she states sometimes relieves the hives. I recommended she follows up with an allergy clinic as well as soundscriber mechanic to be tested to see what she is allergic on. Dragon Disclaimer Dragon Disclaimer This electronic medical record was generated, in whole or in part, using a voice recognition dictation system. Departure Departure Impression: Primary Impression: Hives Disposition: 01 HOME, SELF-CARE Condition: STABLE Referrals: UNKNOWN PCP NAME (PCP) ANDREW MURGUIA MD follow up in 2 weeks Patient Instructions: Hives, [id number] Additional Instructions: You were evaluated in the emergency room for chronic hives. Please follow-up with the soundscriber mechanic as well as allergy clinic to be tested to see what you' re allergic to. Take the prescribed medications as ordered. Scripts Famotidine (FAMOTIDINE) 20 Mg Tablet 20 MG PO HS, #20 TAB Prov: TERRYJABIER LINER REROLL TENDER 11/29/17 Hydroxyzine Hcl (HYDROXYZINE HCL) 25 Mg Tablet 1 TAB PO TID, #90 TAB 1 Refill Prov: JABIER STEWART APRN 11/29/17 Prednisone (PREDNISONE ) 10 Mg Tablet 10 MG PO UD for PREDNISONE TAPER, #39 TAB 0 Refills Take 3 tablets by mouth twice a day for 3 days, then take 2 tablets by mouth twice a day for 3 days, then take 1 tablet by mouth twice a day for 3 days, then take 1 tablet by mouth daily x 3 days, then stop. Prov: MUTUNGA,JABIER LINER REROLL TENDER 11/29/17 JABIER STEWART APRN Nov 29, 2017 13:25
== END 2017-11-29 13:51 | disposition home or self-care (01) ==
LOC: ER 12:10
DX: L50.8 Other urticaria (principal); E11.9 Type 2 diabetes mellitus without complications
CPT/HCPCS: 96372; 99283; J2930; Q0163

== ENCOUNTER 2017-12-14 11:08 | Emergency (ER) | payer OTHER ==
[~2017-12-14] VITALS: Ht 162.6 cm; Wt 63.5 kg
[~2017-12-14 11:08] MED LIST changes: +FAMO20TA5 PO; +HYDR25TA PO; +PRED-220 PO
[2017-12-14] MEDS ORDERED: diphenhydrAMINE HCL 25 MG CAPSULE PO ONE (11:30)
[2017-12-14] MEDS ORDERED: FAMOTIDINE 20 MG TABLET. PO ONE (11:30)
[2017-12-14] MEDS ORDERED: predniSONE 10 MG TABLET PO ONE (11:30)
[2017-12-14] MEDS ORDERED: METH4TAB2 PO (13:28)
[2017-12-14] MEDS ORDERED: OMEP20TA63 PO (13:28)
--- NOTE | 2017-12-14 13:29 | PHYS DOC ---
Past Medical History Past Medical History: Diabetes-Type II, Other Additional Past Medical Histor: CHRONIC HIVES, OVARIAN CYSTS Past Surgical History: Alcohol Use: Occasionally Drug Use: None Adult General Chief Complaint Chief Complaint: SKIN PROBLEM HPI HPI Patient is a 32 year old female who presents with widespread hives. The patient states that she has had outbreaks of these in the past and does not know the cause of the hives. She does not have any known food or drug allergies. She states that when she has had these in the past she has been on prednisone. She has not taken Benadryl or any [id number] medications. She was worried that her throat might swell and presented to the hospital. Review of Systems Review of Systems Constitutional: Denies fever or chills [] Eyes: Denies change in visual acuity, redness, or eye pain [] HENT: Denies nasal congestion or sore throat [] Respiratory: Denies cough or shortness of breath [] Cardiovascular: No additional information not addressed in HPI [] GI: Denies abdominal pain, nausea, vomiting, bloody stools or diarrhea [] : Denies dysuria or hematuria [] Musculoskeletal: Denies back pain or joint pain [] Integument: See history of present illness Neurologic: Denies headache, focal weakness or sensory changes [] Endocrine: Denies polyuria or polydipsia [] All other systems were reviewed and found to be within normal limits, except as documented in this note. Current Medications Current Medications Current Medications Medications (Trade) Dose Ordered Sig/Sedrick Start Time Stop Time Status Last Admin Dose Admin Diphenhydramine HCl (Benadryl) 50 mg 1X ONCE 12/14/17 11:30 12/14/17 11:33 DC 12/14/17 11:39 50 MG Famotidine (Pepcid) 20 mg 1X ONCE 12/14/17 11:30 12/14/17 11:33 DC 12/14/17 11:38 20 MG Prednisone (Prednisone) 50 mg 1X ONCE 12/14/17 11:30 12/14/17 11:33 DC 12/14/17 11:39 50 MG Allergies Allergies Allergies Coded Allergies Type Severity Reaction Last Updated Verified No Known Drug Allergies 09/16/13 No Physical Exam Physical Exam Constitutional: Well developed, well nourished, no acute distress, non-toxic appearance. [] HENT: Normocephalic, atraumatic, bilateral external ears normal, oropharynx moist, no oral exudates, nose normal, she is handling her secretions. [] Eyes: PERRLA, EOMI, conjunctiva normal, no discharge. [] Neck: Normal range of motion, no tenderness, supple, no stridor. [] Cardiovascular:Heart rate regular rhythm, no murmur [] Lungs & Thorax: Bilateral breath sounds clear to auscultation [] Skin: Generalized hives to patient's torso, back and bilateral upper extremities Neurologic: Alert and oriented X 3, normal motor function, normal sensory function, no focal deficits noted. [] Psychologic: Affect normal, judgement normal, mood normal. [] Current Patient Data Vital Signs Vital Signs Date Time Temp Pulse Resp B/P (MAP) Pulse Ox O2 Delivery O2 Flow Rate FiO2 12/14/17 11:16 99.2 89 18 120/77 (91) 97 Room Air 99.2 EKG EKG [] Radiology/Procedures Radiology/Procedures [] Course & Med Decision Making Course & Med Decision Making Pertinent Labs and Imaging studies reviewed. (See chart for details) [] Staff Physician Addendum: I was working in the ER during the course of this patient's visit. I was available for consultation as needed, but I was not directly involved in the care of this patient. Dragon Disclaimer Dragon Disclaimer This electronic medical record was generated, in whole or in part, using a voice recognition dictation system. Departure Departure Impression: Primary Impression: Hives Disposition: 01 HOME, SELF-CARE Condition: STABLE Referrals: UNKNOWN PCP NAME (PCP) Patient Instructions: Hives Additional Instructions: Take the prescribed medications as written. Take Benadryl scheduled for the next 2 days. If you develop shortness of air or swelling to your tongue or throat: 911 immediately. Follow-up with your primary care provider for reevaluation in 4 days if not improving. Scripts Methylprednisolone (MEDROL) 4 Mg Tab.ds.pk 1 PKG PO UD, #1 PKG Prov: FRANCK VILLANUEVA COMPUTER NUMERICAL CONTROL PROGRAMMER 12/14/17 Omeprazole Magnesium (PRILOSEC OTC) 20 Mg Tablet.dr 1 TAB PO DAILY, #30 TAB 3 Refills Prov: FRANCK VILLANUEVA COMPUTER NUMERICAL CONTROL PROGRAMMER 12/14/17 FRANCK VILLANUEVA APRN Dec 14, 2017 13:29 ROCÍO STRAUSS MD Dec 15, 2017 06:13
== END 2017-12-14 14:03 | disposition home or self-care (01) ==
LOC: ER 11:08
DX: L50.9 Urticaria, unspecified (principal); E11.9 Type 2 diabetes mellitus without complications
CPT/HCPCS: 99284; J7512; Q0163

== ENCOUNTER 2017-12-23 10:12 | Emergency (ER) | payer OTHER ==
[~2017-12-23] VITALS: Ht 162.6 cm; Wt 63.5 kg
[~2017-12-23 10:12] MED LIST changes: +METH4TAB2 PO; +OMEP20TA63 PO
[2017-12-23 10:31] VITALS: BP 125/63
[2017-12-23] MEDS ORDERED: PRED50TA PO (10:48)
[2017-12-23] MEDS ORDERED: TRIA15OI TP (10:48)
--- NOTE | 2017-12-23 10:48 | PHYS DOC ---
Past Medical History Past Medical History: Diabetes-Type II, Other Additional Past Medical Histor: CHRONIC HIVES, OVARIAN CYSTS Past Surgical History: Alcohol Use: Occasionally Drug Use: None Adult General Chief Complaint Chief Complaint: SKIN RASH/ABSCESS HPI HPI Patient is a 32 year old female who presents complaining of hives that began this morning. Patient states she has history of chronic hives and follows up with the gravel hauler. She states she typically has to get prednisone by mouth among other medications to help clear them. Patient denies any difficulty breathing. Denies any throat or tongue swelling. Review of Systems Review of Systems Constitutional: Denies fever or chills [] Eyes: Denies change in visual acuity, redness, or eye pain [] HENT: Denies nasal congestion or sore throat [] Respiratory: Denies cough or shortness of breath [] Cardiovascular: No additional information not addressed in HPI [] GI: Denies abdominal pain, nausea, vomiting, bloody stools or diarrhea [] : Denies dysuria or hematuria [] Musculoskeletal: Denies back pain or joint pain [] Integument: Reports hives Neurologic: Denies headache, focal weakness or sensory changes [] All other systems were reviewed and found to be within normal limits, except as documented in this note. Allergies Allergies Allergies Coded Allergies Type Severity Reaction Last Updated Verified No Known Drug Allergies 09/16/13 No Physical Exam Physical Exam Constitutional: Well developed, well nourished, no acute distress, non-toxic appearance. [] HENT: Normocephalic, atraumatic, bilateral external ears normal, oropharynx moist, no oral exudates, nose normal.Airway is open. Eyes: PERRLA, EOMI, conjunctiva normal, no discharge. [] Neck: Normal range of motion, no tenderness, supple, no stridor. [] Cardiovascular:Heart rate regular rhythm, no murmur [] Lungs & Thorax: Bilateral breath sounds clear to auscultation [] Abdomen: Bowel sounds normal, soft, no tenderness, no masses, no pulsatile masses. [] Skin: Warm, dry, mild amount of erythematous hives on patient's chest, bilateral upper extremities, and back, trace amount on the face Back: No tenderness, no CVA tenderness. [] Extremities: No tenderness, no cyanosis, no clubbing, ROM intact, no edema. [] Neurologic: Alert and oriented X 3, normal motor function, normal sensory function, no focal deficits noted. [] Psychologic: Affect normal, judgement normal, mood normal. [] Current Patient Data Vital Signs Vital Signs Date Time Temp Pulse Resp B/P (MAP) Pulse Ox O2 Delivery O2 Flow Rate FiO2 12/23/17 10:31 98.5 78 16 125/63 (83) 97 Room Air 98.5 EKG EKG [] Radiology/Procedures Radiology/Procedures [] Course & Med Decision Making Course & Med Decision Making Pertinent Labs and Imaging studies reviewed. (See chart for details) This is a 32-year-old female patient presenting to the ED today with hives. Patient has history of chronic hives. This episode began this morning. Patient was discharged with prednisone, encouraged to take Benadryl, she states she has a prescription for omeprazole as well. Follow-up with gravel hauler next week. Dragon Disclaimer Dragon Disclaimer This electronic medical record was generated, in whole or in part, using a voice recognition dictation system. Departure Departure Impression: Primary Impression: Hives Disposition: 01 HOME, SELF-CARE Condition: STABLE Referrals: UNKNOWN PCP NAME (PCP) ANDREW MURGUIA MD follow up in one week Patient Instructions: Hives, [id number] Additional Instructions: You were evaluated in the emergency room for hives. Continue following up with the gravel hauler. Consider taking Benadryl/cetirizine daily, continue taking omeprazole. Complete prednisone. Follow-up with your gravel hauler next week. Scripts Triamcinolone Acetonide (TRIAMCINOLONE ACETONIDE 0.1% OINT) 15 Gm Oint...g. 1 JASPER TP BID for WOUND CARE, #1 TUBE Prov: JABIER STEWART APRN 12/23/17 Prednisone (PREDNISONE) 50 Mg Tablet 1 TAB PO DAILY, #5 TAB Prov: JABIER STEWART APRN 12/23/17 JABIER STEWART APRN Dec 23, 2017 10:48
== END 2017-12-23 11:10 | disposition home or self-care (01) ==
LOC: ER 10:12
DX: L50.8 Other urticaria (principal); E11.9 Type 2 diabetes mellitus without complications
CPT/HCPCS: 99283

== ENCOUNTER 2018-03-11 17:08 | Emergency (ER) | payer SELFPAY ==
[~2018-03-11] VITALS: Ht 162.6 cm; Wt 65.8 kg
[~2018-03-11 17:08] MED LIST changes: -HYDR-2758 PO; +HYDR-2761 PO; +HYDR-3164 PO; -HYDR-971 PO; +METR-34 PO; -METR500T8 PO; +PRED50TA PO; +TRIA15OI TP
[2018-03-11 17:22] VITALS: BP 112/67
[2018-03-11] MEDS ORDERED: diphenhydrAMINE HCL 25 MG CAPSULE PO ONE (17:45)
[2018-03-11] MEDS ORDERED: methylPREDNISolone SOD SUCC PF 125 MG/2 ML VIAL. IM ONE (17:45)
[2018-03-11] MEDS ORDERED: PRED20TA PO (18:42)
--- NOTE | 2018-03-11 18:43 | PHYS DOC ---
Past Medical History Past Medical History: Diabetes-Type II, Other Additional Past Medical Histor: CHRONIC HIVES, OVARIAN CYSTS Past Surgical History: Alcohol Use: Occasionally Drug Use: None Adult General Chief Complaint Chief Complaint: ALLERGIC REACTION HPI HPI Patient is a 33 year old female who presents to the emergency department with complaints of generalized hives with itching and chest tightness. Patient reports history of these allergy symptoms. States that she usually takes benadryl for relief of the symptoms but she was out of the medication today. She denies any new meds, foods, detergents, perfumes, or environmental exposures. She denies any pain. Review of Systems Review of Systems Constitutional: Denies fever or chills [] Eyes: Denies change in visual acuity, redness, or eye pain [] HENT: Denies nasal congestion or sore throat [] Respiratory: Denies cough or shortness of breath [] Cardiovascular: No additional information not addressed in HPI [] GI: Denies abdominal pain, nausea, vomiting, or diarrhea [] Integument: See HPI Neurologic: Denies headache Complete systems were reviewed and found to be within normal limits, except as documented in this note. Current Medications Current Medications Current Medications Medications (Trade) Dose Ordered Sig/Sedrick Start Time Stop Time Status Last Admin Dose Admin Diphenhydramine HCl (Benadryl) 50 mg 1X ONCE 03/11/18 17:45 03/11/18 17:51 DC 03/11/18 18:04 50 MG Methylprednisolone Sodium Succinate (SOLU-Medrol 125MG VIAL) 125 mg 1X ONCE 03/11/18 17:45 03/11/18 17:51 DC 03/11/18 18:03 125 MG Allergies Allergies Allergies Coded Allergies Type Severity Reaction Last Updated Verified No Known Drug Allergies 09/16/13 No Physical Exam Physical Exam Constitutional: Well developed, well nourished, no acute distress, non-toxic appearance. [] HENT: Normocephalic, atraumatic, bilateral external ears normal, oropharynx moist, no oral exudates, nose normal. [] Eyes: PERRLA, , no discharge. [] Neck: Normal range of motion, no stridor. [] Cardiovascular:Heart rate regular rhythm Lungs & Thorax: Bilateral breath sounds clear to auscultation [] Skin: Warm, dry; generalized, scattered, red, raised, welts consistent with urticaria Extremities: No cyanosis, no clubbing, ROM intact, no edema. [] Neurologic: Alert and oriented X 3, no focal deficits noted. [] Psychologic: Affect normal, judgement normal, mood normal. [] Current Patient Data Vital Signs EKG EKG [] Radiology/Procedures Radiology/Procedures [] Course & Med Decision Making Course & Med Decision Making Pertinent Labs and Imaging studies reviewed. (See chart for details) [] Dragon Disclaimer Dragon Disclaimer This electronic medical record was generated, in whole or in part, using a voice recognition dictation system. Departure Departure Impression: Primary Impression: Madeleine Disposition: HOME, SELF-CARE Condition: IMPROVED Referrals: UNKNOWN PCP NAME (PCP) Patient Instructions: Madeleine, [id number] Additional Instructions: Fill prescription and use as directed. Take Benadryl every 6 hours as needed for itching. Follow up with your primary care doctor if symptoms persist, return to the ER if symptoms worsen. Scripts Prednisone (PREDNISONE) 20 Mg Tablet 2 TAB PO DAILY for 5 Days, #10 TAB 0 Refills Prov: TOMÁS GILLILAND APRN 03/11/18 TOMÁS GILLILAND APRN Mar 11, 2018 18:43
== END 2018-03-11 18:42 | disposition home or self-care (01) ==
LOC: ER 17:08
DX: L50.8 Other urticaria (principal); E11.9 Type 2 diabetes mellitus without complications; Z98.890 Other specified postprocedural states
CPT/HCPCS: 96372; 99283; J2930; Q0163

== ENCOUNTER 2018-08-11 07:02 | Emergency (ER) | payer OTHER ==
[~2018-08-11] VITALS: Ht 162.6 cm; Wt 69.9 kg
[2018-08-11] MEDS ORDERED: IV NORMAL SALINE 1000ML BAG 1,000 ML IV SCH (07:22)
[2018-08-11] MEDS ORDERED: ONDANSETRON PF 4 MG/2 ML VIAL. IV ONE (07:30)
[2018-08-11] MEDS ORDERED: KETOROLAC 30 MG/ML VIAL. IV ONE (07:30)
--- NOTE | 2018-08-11 07:51 | PHYS DOC ---
Past Medical History Past Medical History: Diabetes-Type II, Other Additional Past Medical Histor: CHRONIC HIVES, OVARIAN CYSTS Past Surgical History: Alcohol Use: Occasionally Drug Use: None Adult General Chief Complaint Chief Complaint: ABDOMINAL PAIN HPI HPI Patient is a 33 year old female who presents with complaining of lower abdominal pain. Patient complaining of intermittent episodes of sharp lower abdominal pain for the last 2 days that usually last about 2 hours and returns after 2 hours again. Patient rated her pain 8/10. Patient denies radiation of pain, urinary symptom, vaginal bleeding or discharge. Patient complaining of nausea without vomiting and subjective fever and chills. Patient states she has chronic constipation and usually has bowel movements once or twice a week and her last bowel movement was about 5 days ago. Patient states she had this pain previously with ovarian cyst. Patient states she took [id number] Tylenol and ibuprofen without improvement of her pain. Patient denies and states her LMP was August 07. Review of Systems Review of Systems Constitutional: Denies fever or chills [] Eyes: Denies change in visual acuity, redness, or eye pain [] HENT: Denies nasal congestion or sore throat [] Respiratory: Denies cough or shortness of breath [] Cardiovascular: No additional information not addressed in HPI [] GI: Reports abdominal pain, nausea, constipation, denies vomiting, bloody stools or diarrhea [] : Denies dysuria or hematuria [] Musculoskeletal: Denies back pain or joint pain [] Integument: Denies rash or skin lesions [] Neurologic: Denies headache, focal weakness or sensory changes [] Endocrine: Denies polyuria or polydipsia [] All other systems were reviewed and found to be within normal limits, except as documented in this note. Current Medications Current Medications Current Medications Medications (Trade) Dose Ordered Sig/Sedrick Start Time Stop Time Status Last Admin Dose Admin Ceftriaxone Sodium (Rocephin) 1 gm 1X ONCE 08/11/18 08:45 08/11/18 08:47 DC 08/11/18 09:28 1 GM Ketorolac Tromethamine (Toradol 30mg Vial) 30 mg 1X ONCE 08/11/18 07:30 08/11/18 07:31 DC 08/11/18 08:01 30 MG Ondansetron HCl (Zofran) 4 mg 1X ONCE 08/11/18 07:30 08/11/18 07:31 DC 08/11/18 08:00 4 MG Sodium Chloride 1,000 ml @ 1,000 mls/hr Q1H 08/11/18 07:22 08/11/18 08:21 DC 08/11/18 07:58 1,000 MLS/HR Allergies Allergies Allergies Coded Allergies Type Severity Reaction Last Updated Verified No Known Drug Allergies 09/16/13 No Physical Exam Physical Exam Constitutional: Well developed, well nourished, mild distress, non-toxic appearance. [] HENT: Normocephalic, atraumatic, oropharynx moist. Eyes: PERRLA, EOMI, conjunctiva normal, no discharge. [] Neck: Normal range of motion, no tenderness, supple, no stridor. [] Cardiovascular:Heart rate regular rhythm, no murmur [] Lungs & Thorax: Bilateral breath sounds clear to auscultation [] Abdomen: Bowel sounds normal, soft, no tenderness, no masses, no pulsatile masses. [] Skin: Warm, dry, no erythema, no rash. [] Back: No tenderness, no CVA tenderness. [] Extremities: No tenderness, no cyanosis, no clubbing, ROM intact, no edema. [] Neurologic: Alert and oriented X 3, normal motor function, normal sensory function, no focal deficits noted. [] Psychologic: Affect normal, judgement normal, mood normal. [] Current Patient Data Vital Signs Vital Signs Date Time Temp Pulse Resp B/P (MAP) Pulse Ox O2 Delivery O2 Flow Rate FiO2 08/11/18 09:26 70 20 124/83 (97) 100 Room Air 08/11/18 07:05 98.6 98.6 Lab Values Laboratory Tests Test 08/11/18 07:14 08/11/18 07:19 08/11/18 07:54 Urine Collection Type Unknown Urine Color Yellow Urine Clarity Clear Urine pH 5.5 Urine Specific Loco 1.015 Urine Protein Negative mg/dL (NEG-TRACE) Urine Glucose (UA) Negative mg/dL (NEG) Urine Ketones (Stick) Negative mg/dL (NEG) Urine Blood Negative (NEG) Urine Nitrite Negative (NEG) Urine Bilirubin Negative (NEG) Urine Urobilinogen Dipstick 0.2 mg/dL (0.2 mg/dL) Urine Leukocyte Esterase Moderate (NEG) Urine RBC 0 /HPF (0-2) Urine WBC 20-40 /HPF (0-4) Urine Squamous Epithelial Cells Mod /LPF Urine Bacteria Few /HPF (0-FEW) Urine Mucus Marked /LPF Urine Trichomonas Present POC Urine HCG, Qualitative Hcg negative (Negative) White Blood Count 8.0 x10^3/uL (4.0-11.0) Red Blood Count 3.91 x10^6/uL (3.50-5.40) Hemoglobin 11.9 g/dL (12.0-15.5) L Hematocrit 35.7 % (36.0-47.0) L Mean Corpuscular Volume 91 fL (79-100) Mean Corpuscular Hemoglobin 30 pg (25-35) Mean Corpuscular Hemoglobin Concent 33 g/dL (31-37) Red Cell Distribution Width 14.4 % (11.5-14.5) Platelet Count 281 x10^3/uL (140-400) Neutrophils (%) (Auto) 47 % (31-73) Lymphocytes (%) (Auto) 43 % (24-48) Monocytes (%) (Auto) 5 % (0-9) Eosinophils (%) (Auto) 5 % (0-3) H Basophils (%) (Auto) 1 % (0-3) Neutrophils # (Auto) 3.7 x10^3uL (1.8-7.7) Lymphocytes # (Auto) 3.4 x10^3/uL (1.0-4.8) Monocytes # (Auto) 0.4 x10^3/uL (0.0-1.1) Eosinophils # (Auto) 0.4 x10^3/uL (0.0-0.7) Basophils # (Auto) 0.1 x10^3/uL (0.0-0.2) Sodium Level 141 mmol/L (136-145) Potassium Level 3.4 mmol/L (3.5-5.1) L Chloride Level 104 mmol/L (98-107) Carbon Dioxide Level 25 mmol/L (21-32) Anion Gap 12 (6-14) Blood Urea Nitrogen 6 mg/dL (7-20) L Creatinine 0.7 mg/dL (0.6-1.0) Estimated GFR (Cockcroft-Gault) 117.3 BUN/Creatinine Ratio 9 (6-20) Glucose Level 108 mg/dL (70-99) H Calcium Level 8.6 mg/dL (8.5-10.1) Total Bilirubin 0.1 mg/dL (0.2-1.0) L Aspartate Amino Transferase (AST) 18 U/L (15-37) Alanine Aminotransferase (ALT) 21 U/L (14-59) Alkaline Phosphatase 91 U/L (46-116) Total Protein 7.3 g/dL (6.4-8.2) Albumin 3.4 g/dL (3.4-5.0) Albumin/Globulin Ratio 0.9 (1.0-1.7) L Lipase 117 U/L (73-393) Laboratory Tests 08/11/18 07:54 Laboratory Tests 08/11/18 07:54 EKG EKG [] Radiology/Procedures Radiology/Procedures [] Course & Med Decision Making Course & Med Decision Making Pertinent Labs reviewed. (See chart for details) Evaluation of patient in ER showed 33-year-old female patient with complaining of intermittent episodes of lower abdominal pain for the last couple days. Patient had unremarkable physical exam and vital signs. Labs showed UTI without leukocytosis and positive for Trichomonas. Patient treated with Toradol and Rocephin and IV fluid in ER and plan discharge home with prescription of Bactrim and Ultram and Flagyl. Dragon Disclaimer Dragon Disclaimer This electronic medical record was generated, in whole or in part, using a voice recognition dictation system. Departure Departure Impression: Primary Impression: Urinary tract infection Additional Impressions: Abdominal pain Trichomoniasis of bladder Disposition: HOME, SELF-CARE (at 0900) Condition: IMPROVED Referrals: BECKY WALKER MD (PCP) Patient Instructions: Abdominal Pain (Nonspecific), Trichomoniasis, Urinary Tract Infection Additional Instructions: Drink plenty of liquids Follow-up with your primary care physician in 3-5 days Return to ER if not getting better Scripts Metronidazole (FLAGYL) 500 Mg Tablet 1 TAB PO BID, #14 TAB Prov: MILAN ROSENBAUM MD 08/11/18 Tramadol Hcl (ULTRAM) 50 Mg Tablet 50 MG PO Q6HRS PRN for PAIN, #14 TAB 0 Refills Prov: MILAN ROSENBAUM MD 08/11/18 Sulfamethoxazole/Trimethoprim (BACTRIM DS TABLET) 1 Each Tablet 1 TAB PO BID for infection, #14 TAB Prov: MILAN ROSENBAUM MD 08/11/18 Problem Qualifiers Primary Impression: Urinary tract infection Urinary tract infection type: acute cystitis Hematuria presence: without hematuria Qualified Codes: N30.00 - Acute cystitis without hematuria Additional Impressions: Abdominal pain Abdominal location: lower abdomen, unspecified Qualified Codes: R10.30 - Lower abdominal pain, unspecified MILAN ROSENBAUM MD Aug 11, 2018 07:51
[2018-08-11 08:15] LABS: BILIRUBIN,URINE NEGATIVE (NEG); CLARITY,URINE CLEAR; COLOR,URINE YELLOW; NITRITE,URINE NEGATIVE (NEG); PH,URINE 5.5; PROTEIN,URINE NEGATIVE (NEG-TRACE); UROBILINOGEN,URINE 0.2 mg/dL (0.2 mg/dL)
[2018-08-11 08:15] LABS: CALCIUM 8.6 mg/dL (8.5-10.1); CREATININE 0.7 mg/dL (0.6-1.0); GFR 117.3; POTASSIUM 3.4 mmol/L (3.5-5.1)
[2018-08-11 08:21] LABS: ALBUMIN 3.4 g/dL (3.4-5.0); ALBUMIN/GLOBULIN RATIO 0.9 (1.0-1.7); BASO # 0.1 x10^3/uL (0.0-0.2); BASO % 1 % (0-3); EOS # 0.4 x10^3/uL (0.0-0.7); EOS % 5 % (0-3); HEMATOCRIT 35.7 % (36.0-47.0); HEMOGLOBIN 11.9 g/dL (12.0-15.5); LYMPH # 3.4 x10^3/uL (1.0-4.8); LYMPH % 43 % (24-48); MEAN CORPUSCULAR HEMOGLOBIN 30 pg (25-35); MEAN CORPUSCULAR HGB CONC 33 g/dL (31-37); MEAN CORPUSCULAR VOLUME 91 fL (79-100); MONO # 0.4 x10^3/uL (0.0-1.1); MONO % 5 % (0-9); NEUT # 3.7 x10^3uL (1.8-7.7); NEUT % 47 % (31-73); PLATELET COUNT 281 x10^3/uL (140-400); RED BLOOD COUNT 3.91 x10^6/uL (3.50-5.40); RED CELL DISTRIBUTION WIDTH 14.4 % (11.5-14.5); TOTAL BILIRUBIN 0.1 mg/dL (0.2-1.0); TOTAL PROTEIN 7.3 g/dL (6.4-8.2)
[2018-08-11 08:31] LABS: BACTERIA,URINE FEW /HPF (0-FEW); RBC,URINE 0 /HPF (0-2); SQUAMOUS EPITHELIAL CELL,UR MOD /LPF; WBC,URINE 20-40 /HPF (0-4)
[2018-08-11 08:32] LABS: TRICHOMONAS,URINE PRESENT
[2018-08-11] MEDS ORDERED: cefTRIAXone IV Push 1 GM VIAL. IVP ONE (08:45)
[2018-08-11] MEDS ORDERED: TRAM-48 PO (08:54)
[2018-08-11] MEDS ORDERED: SULF1TAB24 PO (08:54)
[2018-08-11] MEDS ORDERED: METR500T PO (09:11)
[2018-08-11 09:26] VITALS: BP 124/83
== END 2018-08-11 09:43 | disposition home or self-care (01) ==
LOC: ER 07:02
DX: N30.00 Acute cystitis without hematuria (principal); A59.03 Trichomonal cystitis and urethritis; E11.9 Type 2 diabetes mellitus without complications
CPT/HCPCS: 36415; 80053; 81001; 81025; 83690; 85025; 87086; 96374; 96375; 99284; J0696; J1885; J2405; J7030

== ENCOUNTER 2018-09-02 13:21 | Emergency (ER) | payer OTHER ==
[~2018-09-02] VITALS: Ht 162.6 cm; Wt 70.3 kg
[~2018-09-02 13:21] MED LIST changes: +SULF1TAB24 PO; +TRAM-48 PO
[2018-09-02 13:33] VITALS: BP 160/88
[2018-09-02] MEDS ORDERED: diphenhydrAMINE HCL 25 MG CAPSULE PO ONE (13:45)
[2018-09-02] MEDS ORDERED: FAMOTIDINE 20 MG TABLET. PO ONE (13:45)
--- NOTE | 2018-09-02 13:46 | PHYS DOC ---
Past Medical History Past Medical History: Diabetes-Type II, Other Additional Past Medical Histor: CHRONIC HIVES, OVARIAN CYSTS Past Surgical History: Alcohol Use: Occasionally Drug Use: None Adult General Chief Complaint Chief Complaint: SKIN RASH/ABSCESS HPI HPI Patient is a 33-year-old -[place] female who states that she has "chronic hives". She states that she began experiencing a tightening in her throat that 45 minutes ago and feels that she is getting an outbreak of her chronic hives. 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 She has had no voice changes, fevers, chills, dizziness or lightheadedness, and has no other complaints at this time. Review of Systems Review of Systems Constitutional: Denies fever or chills [] Eyes: Denies change in visual acuity, redness, or eye pain [] HENT: Denies nasal congestion or sore throat [] Respiratory: Denies cough or current shortness of breath [] Cardiovascular: The patient denies any shortness of breath, chest pain, palpitations, or orthopnea [] GI: Denies abdominal pain, nausea, vomiting, bloody stools or diarrhea [] : Denies dysuria or hematuria [] Musculoskeletal: Denies back pain or joint pain [] Integument: Denies current rash or skin lesions [] Neurologic: Denies headache, focal weakness or sensory changes [] Current Medications Current Medications Current Medications Medications (Trade) Dose Ordered Sig/Sedrick Start Time Stop Time Status Last Admin Dose Admin Diphenhydramine HCl (Benadryl) 50 mg 1X ONCE 09/02/18 13:45 09/02/18 13:47 DC Famotidine (Pepcid) 20 mg 1X ONCE 09/02/18 13:45 09/02/18 13:47 DC Prednisone (Prednisone) 40 mg 1X ONCE 09/02/18 14:00 09/02/18 14:01 Allergies Allergies Allergies Coded Allergies Type Severity Reaction Last Updated Verified No Known Drug Allergies 09/16/13 No Physical Exam Physical Exam PHYSICAL EXAM: CONSTITUTIONAL: Well developed, well nourished HEAD: normocephalic, atraumatic EENT: PERRL, EOMI. Conjunctivae normal color, sclerae non-icteric; moist mucous membranes. The airway is patent, without edema. The voice is normal. There is no stridor. NECK: Supple, non-tender; no meningismus. LUNGS: Lungs CTA, breathing even and unlabored. Normal air movement. HEART: Regular rate and rhythm, no murmur CHEST: No deformity; non-tender ABDOMEN: The abdomen is soft, and non-tender, no masses or bruits. EXTREM: Normal ROM; no deformity, no calf tenderness. Normal pulses palpable in all extremities. There is no pedal edema. SKIN: No rash; no diaphoresis NEURO: Alert; normal speech and cognition; CN's grossly intact; strength grossly intact without focal deficit. BACK: No CVA TTP. Current Patient Data Vital Signs Vital Signs Date Time Temp Pulse Resp B/P (MAP) Pulse Ox O2 Delivery O2 Flow Rate FiO2 09/02/18 13:33 98.7 82 18 160/88 (112) 100 Room Air 98.7 EKG EKG [] Radiology/Procedures Radiology/Procedures [] Course & Med Decision Making Course & Med Decision Making Discussed home care plan with H1 and H2 blockers, steroids as per the patient's usual treatment regimen, need for close follow-up, and return precautions. Dragon Disclaimer Dragon Disclaimer This electronic medical record was generated, in whole or in part, using a voice recognition dictation system. Departure Departure Impression: Primary Impression: Hives Disposition: 01 HOME, SELF-CARE Condition: STABLE Referrals: BECKY WALKER MD (PCP) Patient Instructions: Hives Additional Instructions: Take Benadryl 25-50 mg every 6 hours for the next 3 days. Use caution as this may cause sedation. Additionally, take Pepcid AC 10 mg twice daily for the next 3 days. This medicine is available [id number]. Use the prescribed steroids as instructed. Return to medical care for any new, or worsening symptoms, the development of shortness of breath, new rash, dizziness lightheadedness, fevers, or any other new, or concerning symptoms. Scripts Prednisone (PREDNISONE) 20 Mg Tablet 40 MG PO DAILY for 5 Days, #10 TAB Prov: MICHAEL HENRY MD 09/02/18 MICHAEL HENRY MD Sep 02, 2018 13:46
[2018-09-02] MEDS ORDERED: predniSONE 20 MG TABLET PO ONE (14:00)
[2018-09-02] MEDS ORDERED: PRED20TA PO (14:00)
== END 2018-09-02 14:10 | disposition home or self-care (01) ==
LOC: ER 13:21
DX: L50.8 Other urticaria (principal); E11.9 Type 2 diabetes mellitus without complications
CPT/HCPCS: 99284; J7512; Q0163

== ENCOUNTER 2018-12-29 08:16 | Emergency (ER) | payer OTHER ==
[~2018-12-29] VITALS: Ht 162.6 cm; Wt 73.5 kg
[2018-12-29] MEDS ORDERED: IBUPROFEN 400 MG TABLET. PO ONE (08:45)
[2018-12-29 09:05] LABS: BILIRUBIN,URINE NEGATIVE (NEG); CLARITY,URINE CLEAR; COLOR,URINE YELLOW; NITRITE,URINE NEGATIVE (NEG); PH,URINE 5.5; PROTEIN,URINE NEGATIVE (NEG-TRACE); UROBILINOGEN,URINE 0.2 mg/dL (0.2 mg/dL)
--- NOTE | 2018-12-29 09:33 | RAD ---
CHEST PA LATERAL History: Midsternal chest pain. Comparison: March 26, 2016. Findings: No consolidation or pleural effusion. Normal heart size. No pneumothorax. Impression: 1. No acute cardiopulmonary process. Electronically signed by: Tony Izquierdo DO (12/29/2018 9:30 AM) [facility]
[2018-12-29 09:40] LABS: RBC,URINE OCC /HPF (0-2); SQUAMOUS EPITHELIAL CELL,UR MOD /LPF
[2018-12-29 09:41] LABS: BACTERIA,URINE FEW /HPF (0-FEW)
[2018-12-29] MEDS ORDERED: DOXY100C14 PO (09:55)
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
[2018-12-29 10:19] VITALS: BP 124/64
--- NOTE | 2018-12-29 14:26 | EKG ---
[facility] [address] [place] [address] Test Date: 2018-12-29 Test Time: 08:25:52 Pat Name: MELISSA MCDERMOTT Department: Room: Gender: F Research Support Specialist: : 1985 Requested By: BLU GRAHAM Order Number: [id number] Reading MD: Measurements Intervals [place] Rate: 72 P: 0 CO: 150 QRS: 24 QRSD: 88 T: 0 QT: 380 QTc: 422 Interpretive Statements SINUS RHYTHM OTHERWISE NORMAL ECG RI6.01 No previous ECG available for comparison
== END 2018-12-29 10:21 | disposition home or self-care (01) ==
LOC: ER 08:16
DX: N39.0 Urinary tract infection, site not specified (principal); R07.2 Precordial pain; E11.9 Type 2 diabetes mellitus without complications
CPT/HCPCS: 71046; 81001; 81025; 87086; 93005; 99285-25

== ENCOUNTER 2019-02-01 14:44 | Emergency (ER) | payer OTHER ==
[~2019-02-01 14:44] MED LIST changes: +DOXY100C14 PO
== END 2019-02-01 15:34 | disposition left against medical advice (07) ==
LOC: ER 14:44
DX: R10.9 Unspecified abdominal pain (principal); R11.2 Nausea with vomiting, unspecified; Z53.21 Procedure and treatment not carried out due to patient leaving prior to being seen by health care provider

== ENCOUNTER 2019-02-12 19:44 | Emergency (ER) | payer OTHER | END 2019-02-12 22:17 | disposition left against medical advice (07) | LOC: ER 19:44 | DX: H92.03 Otalgia, bilateral (principal); Z53.21 Procedure and treatment not carried out due to patient leaving prior to being seen by health care provider ==

== ENCOUNTER 2019-02-14 18:15 | Emergency (ER) | payer OTHER ==
[~2019-02-14] VITALS: Ht 162.6 cm; Wt 73.5 kg
[2019-02-14 18:33] VITALS: BP 149/70
--- NOTE | 2019-02-14 19:00 | PHYS DOC ---
Past Medical History Past Medical History: Diabetes-Type II, Other Additional Past Medical Histor: CHRONIC HIVES, OVARIAN CYSTS Past Surgical History: Alcohol Use: Occasionally Drug Use: None Adult General Chief Complaint Chief Complaint: EARACHE/EAR PAIN [facility] HPI Patient is a 33 year old female who presents to the ED today complaining of mild bilateral ear pain for 4 days. Patient denies any fever coughing or congestion. Review of Systems Review of Systems Constitutional: Denies fever or chills [] Eyes: Denies change in visual acuity, redness, or eye pain [] HENT: Reports bilateral ear pain. Denies nasal congestion or sore throat [] Respiratory: Denies cough or shortness of breath [] Cardiovascular: No additional information not addressed in HPI [] GI: Denies abdominal pain, nausea, vomiting, bloody stools or diarrhea [] : Denies dysuria or hematuria [] Musculoskeletal: Denies back pain or joint pain [] Integument: Denies rash or skin lesions [] Neurologic: Denies headache, focal weakness or sensory changes [] All other systems were reviewed and found to be within normal limits, except as documented in this note. Allergies Allergies Allergies Coded Allergies Type Severity Reaction Last Updated Verified No Known Drug Allergies 09/16/13 No Physical Exam Physical Exam Constitutional: Well developed, well nourished, no acute distress, non-toxic appearance. [] HENT: Normocephalic, atraumatic, bilateral external ears normal, oropharynx moist, no oral exudates, nose normal. Left ear canal with mild amount of cerumen, the TM can be visualized but appears erythematous, right TM appears normal. Eyes: PERRLA, EOMI, conjunctiva normal, no discharge. [] Neck: Normal range of motion, no tenderness, supple, no stridor. [] Cardiovascular:Heart rate regular rhythm, no murmur [] Lungs & Thorax: Bilateral breath sounds clear to auscultation [] Abdomen: Bowel sounds normal, soft, no tenderness, no masses, no pulsatile masses. [] Skin: Warm, dry, no erythema, no rash. [] Back: No tenderness, no CVA tenderness. [] Extremities: No tenderness, no cyanosis, no clubbing, ROM intact, no edema. [] Neurologic: Alert and oriented X 3, normal motor function, normal sensory function, no focal deficits noted. [] Psychologic: Affect normal, judgement normal, mood normal. [] Current Patient Data Vital Signs Vital Signs Date Time Temp Pulse Resp B/P (MAP) Pulse Ox O2 Delivery O2 Flow Rate FiO2 02/14/19 18:33 98.4 82 18 149/70 (96) 96 Room Air 98.4 EKG EKG [] Radiology/Procedures Radiology/Procedures [] Course & Med Decision Making Course & Med Decision Making Pertinent Labs and Imaging studies reviewed. (See chart for details) This is a 33-year-old female patient with otitis media to the left and cerumen impaction to the left. I recommended [id number] Debrox for cerumen. Discharged with amoxicillin. Note for work provided. Tylenol/Motrin for pain. Dragon Disclaimer Dragon Disclaimer This electronic medical record was generated, in whole or in part, using a voice recognition dictation system. Departure Departure Impression: Primary Impression: Cerumen impaction Additional Impression: Otitis media Disposition: HOME, SELF-CARE Condition: STABLE Referrals: BECKY WALKER MD (PCP) follow up in 1-2 weeks Patient Instructions: Cerumen Impaction-SportsMed, Otitis Media, Adult Additional Instructions: You were seen for ear infection you were noted to have earwax worse in the left ear. Use [id number] Debrox to remove the earwax. Complete your antibiotics. Follow-up with your doctor in 1-2 weeks Scripts Diclofenac Potassium (DICLOFENAC POTASSIUM) 50 Mg Tablet 1 TAB PO BID, #20 TAB 0 Refills Prov: JABIER STEWART APRN 02/14/19 Amoxicillin (AMOXICILLIN) 875 Mg Tablet 1 TAB PO BID, #20 TAB Prov: JABIER STEWART APRN 02/14/19 Problem Qualifiers Primary Impression: Cerumen impaction Laterality: left Qualified Codes: H61.22 - Impacted cerumen, left ear Additional Impression: Otitis media Otitis media type: other nonsuppurative Chronicity: acute Laterality: bilateral Recurrence: not specified as recurrent Qualified Codes: H65.193 - Other acute nonsuppurative otitis media, bilateral JABIER STEWART APRN Feb 14, 2019 19:00
[2019-02-14] MEDS ORDERED: AMOX875T PO (19:06)
[2019-02-14] MEDS ORDERED: DICL50TA2 PO (19:07)
== END 2019-02-14 19:13 | disposition home or self-care (01) ==
LOC: ER 18:15
DX: H61.22 Impacted cerumen, left ear (principal); H65.193 Other acute nonsuppurative otitis media, bilateral; E11.9 Type 2 diabetes mellitus without complications
CPT/HCPCS: 99283

== ENCOUNTER 2019-02-25 07:27 | Emergency (ER) | payer OTHER ==
[~2019-02-25] VITALS: Ht 162.6 cm; Wt 68.0 kg
[~2019-02-25 07:27] MED LIST changes: +AMOX875T PO; +DICL50TA2 PO
[2019-02-25] MEDS ORDERED: PROM5SYR2 PO (08:09)
--- NOTE | 2019-02-25 08:11 | PHYS DOC ---
Past Medical History Past Medical History: Diabetes-Type II, Other Additional Past Medical Histor: CHRONIC HIVES, OVARIAN CYSTS Past Surgical History: Alcohol Use: Occasionally Drug Use: None Adult General Chief Complaint Chief Complaint: EARACHE/EAR PAIN [facility] Patient is a 33 year old female who presents with body aches, sore throat, left ear pain and dry cough. Symptom onset was several days ago. Patient was evaluated emergency department treated for otitis media and placed on amoxicillin. Denies shortness of breath, wheezing, vomiting. No headache, rash neck stiffness. No other acute symptoms or complaints[] Review of Systems Review of Systems ROS as per HPI All other systems were reviewed and found to be within normal limits, except as documented in this note. Allergies Allergies Allergies Coded Allergies Type Severity Reaction Last Updated Verified No Known Drug Allergies 09/16/13 No Physical Exam Physical Exam Constitutional: Well developed, well nourished, no acute distress, non-toxic appearance. [] HENT: Normocephalic, atraumatic bilateral external ears normal, ,Left TM erythem with opaque effusion, R TM, clear effusion, oropharynx moist, no oral exudates, nose normal. [] Eyes: PERRLA, EOMI, conjunctiva normal, no discharge. [] Neck: Normal range of motion, no tenderness, supple, no stridor. [] Cardiovascular:Heart rate regular rhythm, no murmur [] Lungs & Thorax: Bilateral breath sounds clear to auscultation [] Abdomen: Bowel sounds normal, soft, no tenderness, no masses, no pulsatile masses. [] Skin: Warm, dry. [] Back: No tenderness. [] Extremities: No tenderness, no cyanosis, no clubbing, ROM intact, no edema. [] Neurologic: Alert and oriented X 3, normal motor function, normal sensory function, no focal deficits noted. [] Psychologic: Affect normal, judgement normal, mood normal. [] Current Patient Data Vital Signs Vital Signs Date Time Temp Pulse Resp B/P (MAP) Pulse Ox O2 Delivery O2 Flow Rate FiO2 02/25/19 07:44 98.6 90 16 170/113 (132) 98 Room Air 98.6 EKG EKG [] Radiology/Procedures Radiology/Procedures [] Course & Med Decision Making Course & Med Decision Making Pertinent Labs and Imaging studies reviewed. (See chart for details) [] Dragon Disclaimer Dragon Disclaimer This electronic medical record was generated, in whole or in part, using a voice recognition dictation system. Departure Departure Impression: Primary Impression: Left otitis media with effusion Additional Impression: Influenza Disposition: 01 HOME, SELF-CARE Condition: STABLE Referrals: BECKY WALKER MD (PCP) Patient Instructions: Influenza, Adult, Otitis Media, Adult, [id number] Additional Instructions: Please continue amoxicillin and take newly prescribed medication as directed and ask your pharmacist for Mucinex-D. Follow up with your PCP in -5-7 days for re-evaluation. Return to the ED if new or worsening symptoms. Scripts Promethazine HCl/Codeine (Prometh-Codein 6.25-10 mg/5 ml) 5 Ml Syrup 5 ML PO PRN Q4-6HRS PRN for cough MDD 30 Milliliter(s), #120 ML 0 Refills Prov: BLU GRAHAM DO 02/25/19 Problem Qualifiers BLU GRAHAM DO Feb 25, 2019 08:10
[2019-02-25 08:16] VITALS: BP 138/84
== END 2019-02-25 08:19 | disposition home or self-care (01) ==
LOC: ER 07:27
DX: J11.1 Influenza due to unidentified influenza virus with other respiratory manifestations (principal); H65.92 Unspecified nonsuppurative otitis media, left ear; E11.9 Type 2 diabetes mellitus without complications
CPT/HCPCS: 99283

== ENCOUNTER 2019-04-09 13:17 | Emergency (ER) | payer OTHER ==
[~2019-04-09] VITALS: Ht 162.6 cm; Wt 68.2 kg
[~2019-04-09 13:17] MED LIST changes: +PROM5SYR2 PO
[2019-04-09] MEDS ORDERED: DEXAMETHASONE 4 MG TABLET PO STA (13:41)
[2019-04-09] MEDS ORDERED: FAMOTIDINE 20 MG TABLET. PO STA (13:41)
[2019-04-09] MEDS ORDERED: diphenhydrAMINE HCL 25 MG CAPSULE PO STA (13:41)
--- NOTE | 2019-04-09 13:45 | PHYS DOC ---
Past Medical History Past Medical History: Diabetes-Type II, Other Additional Past Medical Histor: CHRONIC HIVES, OVARIAN CYSTS Past Surgical History: Smoking Status: Current Every Day Smoker Alcohol Use: Occasionally Drug Use: None Adult General Chief Complaint Chief Complaint: SHORTNESS OF BREATH HPI HPI Patient is a 34 year old female who presents with chronic urticaria. Patient states she's been ongoing for 2 years. The patient states however she's been having hives the last 3 days and felt like her throat was also tired than normal this morning so she sat accompanied to the ER to get checked out. The patient took Zyrtec and Benadryl last night before bed. Denies fevers or any additional symptoms. Complete ROS were reviewed and found to be within normal limits, except as do cumented in the HPI Current Medications Current Medications Current Medications Medications (Trade) Dose Ordered Sig/Sedrick Start Time Stop Time Status Last Admin Dose Admin Dexamethasone (Decadron) 10 mg 1X STAT 04/09/19 13:41 04/09/19 13:44 DC Diphenhydramine HCl (Benadryl) 50 mg 1X STAT 04/09/19 13:41 04/09/19 13:44 DC Famotidine (Pepcid) 20 mg 1X STAT 04/09/19 13:41 04/09/19 13:44 DC Allergies Allergies Allergies Coded Allergies Type Severity Reaction Last Updated Verified No Known Drug Allergies 09/16/13 No Physical Exam Physical Exam Constitutional: Well developed, well nourished, no acute distress, non-toxic appearance. [] HENT: Normocephalic, atraumatic, bilateral external ears normal, oropharynx moist, no oral exudates, nose normal. [] Eyes: PERRLA, EOMI, conjunctiva normal, no discharge. [] Neck: Normal range of motion, no tenderness, supple, no stridor. [] Cardiovascular:Heart rate regular rhythm, no murmur [] Lungs & Thorax: Bilateral breath sounds clear to auscultation [] Abdomen: Bowel sounds normal, soft, no tenderness, no masses, no pulsatile masses. [] Skin: diffuse urticaria Neurologic: Alert and oriented X 3, normal motor function, normal sensory function, no focal deficits noted. [] Psychologic: Affect normal, judgement normal, mood normal. [] EKG EKG [] Radiology/Procedures Radiology/Procedures [] Course & Med Decision Making Course & Med Decision Making Pertinent Labs and Imaging studies reviewed. (See chart for details) Will give Decadron, Benadryl and Pepcid. Will put on Medrol dose pack and have follow up with wastewater treatment supervisor. Larissa Disclaimer Nettieon Disclaimer This electronic medical record was generated, in whole or in part, using a voice recognition dictation system. Departure Departure Impression: Primary Impression: Urticaria of unknown origin Disposition: HOME, SELF-CARE Condition: STABLE Referrals: BECKY WALKER MD (PCP) Patient Instructions: Madeleine Additional Instructions: Thank you for visiting [facility]. We appreciate you trusting us with your care. If any additional problems come up don't hesitate to return to visit us. Please follow up with your primary care provider so they can plan additional care if needed and know about the problem that you had. If symptoms worsen come back to the Emergency Department. Any concerning symptoms that start such as chest pain, shortness of air, weakness or numbness on one side of the body, running high fevers or any other concerning symptoms return to the ER. Please follow up with Sales Support Technician. Scripts Methylprednisolone (MEDROL) 4 Mg Tab.ds.pk 1 PKG PO UD, #1 PKG Prov: CYNTHIA VALENTINO APRN 04/09/19 CYNTHIA VALENTINO APRN Apr 09, 2019 13:45
[2019-04-09] MEDS ORDERED: METH4TAB2 PO (13:46)
[2019-04-09 13:54] VITALS: BP 129/72
== END 2019-04-09 14:05 | disposition home or self-care (01) ==
LOC: ER 13:17
DX: L50.8 Other urticaria (principal); E11.9 Type 2 diabetes mellitus without complications; F17.200 Nicotine dependence, unspecified, uncomplicated; Z98.890 Other specified postprocedural states
CPT/HCPCS: 99284; J8540; Q0163

== ENCOUNTER 2019-09-02 21:13 | Emergency (ER) | payer OTHER ==
[~2019-09-02] VITALS: Ht 162.6 cm; Wt 68.0 kg
[2019-09-02 22:20] LABS: BASO # 0.1 x10^3/uL (0.0-0.2); BASO % 1 % (0-3); EOS # 0.2 x10^3/uL (0.0-0.7); EOS % 2 % (0-3); HEMATOCRIT 38.4 % (36.0-47.0); HEMOGLOBIN 12.9 g/dL (12.0-15.5); LYMPH # 3.5 x10^3/uL (1.0-4.8); LYMPH % 36 % (24-48); MEAN CORPUSCULAR HEMOGLOBIN 30 pg (25-35); MEAN CORPUSCULAR HGB CONC 34 g/dL (31-37); MEAN CORPUSCULAR VOLUME 90 fL (79-100); MONO # 0.5 x10^3/uL (0.0-1.1); MONO % 5 % (0-9); NEUT # 5.5 x10^3/uL (1.8-7.7); NEUT % 57 % (31-73); PLATELET COUNT 277 x10^3/uL (140-400); RED BLOOD COUNT 4.26 x10^6/uL (3.50-5.40); RED CELL DISTRIBUTION WIDTH 13.9 % (11.5-14.5); WHITE BLOOD COUNT 9.7 x10^3/uL (4.0-11.0)
[2019-09-02] MEDS ORDERED: IV NORMAL SALINE 1000ML BAG 1,000 ML IV ONE (22:30)
[2019-09-02] MEDS ORDERED: ONDANSETRON PF 4 MG/2 ML VIAL. IVP ONE (22:30)
[2019-09-02] MEDS ORDERED: MORPHINE SULFATE 4 MG/ML VIAL. IV ONE (22:30)
[2019-09-02 22:34] LABS: CALCIUM 8.7 mg/dL (8.5-10.1); CREATININE 0.9 mg/dL (0.6-1.0); GFR 87.3; POTASSIUM 3.9 mmol/L (3.5-5.1)
[2019-09-02] MEDS ORDERED: CONTRAST GIVEN. MC PRN (22:45)
[2019-09-02 22:48] LABS: ALBUMIN 3.7 g/dL (3.4-5.0); ALBUMIN/GLOBULIN RATIO 0.9 (1.0-1.7); TOTAL BILIRUBIN 0.2 mg/dL (0.2-1.0); TOTAL PROTEIN 7.7 g/dL (6.4-8.2)
[2019-09-02] MEDS ORDERED: IOHEXOL 300 MG/ML 100ML VIAL. IV ONE (23:00)
--- NOTE | 2019-09-03 00:21 | RAD ---
CT abdomen pelvis with contrast. HISTORY: Abdominal pain CT scan of the abdomen pelvis was done using 75 mL Omnipaque 300 contrast. Comparison is made with a study from May 2017. Lung bases are clear. There is no pleural effusion. There is mild atelectasis. There is a small subpleural nodule along the diaphragm in the left lower lobe without change from the old study. There is mild fatty change in the liver without a focal lesion. There is no calcified gallstone. Adrenal glands are normal. Spleen is unremarkable. A pancreatic lesion is not identified. There is no mass or hydronephrosis in the kidneys. There is no bowel obstruction or ascites. There is diverticulosis without an acute diverticulitis. There is moderate stool in the colon. There is a 2 cm cyst or follicle in the left ovary. There is a trace of free fluid in the pelvis. Probable tampon in the vagina. Appendix is normal. IMPRESSION: 1. Mild fatty liver change. 2. Normal appendix. 3. Mild diverticulosis without acute diverticulitis. 4. Small cyst or follicle left ovary. 5. No bowel obstruction or other acute finding. PQRS Compliance Statement: One or more of the following individualized dose reduction techniques were utilized for this examination: 1. Automated exposure control 2. Adjustment of the mA and/or kV according to patient size 3. Use of iterative reconstruction technique Electronically signed by: Bob Baez MD (09/03/2019 12:19 AM) [id number]
[2019-09-03] MEDS ORDERED: PIP/TAZO PER PHARMACY MC PRN (00:30)
[2019-09-03 00:48] LABS: BILIRUBIN,URINE NEGATIVE (NEG); CLARITY,URINE CLEAR; COLOR,URINE YELLOW; NITRITE,URINE NEGATIVE (NEG); PROTEIN,URINE NEGATIVE (NEG-TRACE)
[2019-09-03] MEDS ORDERED: ONDANSETRON PF 4 MG/2 ML VIAL. IVP ONE (01:00)
[2019-09-03] MEDS ORDERED: MORPHINE SULFATE 4 MG/ML VIAL. IV ONE (01:00)
[2019-09-03] MEDS ORDERED: PIPERACILLIN/TAZOBACTAM 3.375 GM in IV NORMAL SALINE 50ML 50 ML IV SCH (01:00)
[2019-09-03 01:03] LABS: BACTERIA,URINE MODERATE /HPF (0-FEW); RBC,URINE 0 /HPF (0-2); SQUAMOUS EPITHELIAL CELL,UR MOD /LPF; TRICHOMONAS,URINE PRESENT; WBC,URINE >40 /HPF (0-4)
[2019-09-03] MEDS ORDERED: METR500T PO (01:10)
[2019-09-03] MEDS ORDERED: DOXY100C2 PO (01:10)
--- NOTE | 2019-09-03 01:10 | PHYS DOC ---
Past Medical History Past Medical History: Diabetes-Type II, Other Additional Past Medical Histor: CHRONIC HIVES, OVARIAN CYSTS Past Surgical History: Smoking Status: Current Every Day Smoker Alcohol Use: Occasionally Drug Use: None General Adult EDM: Chief Complaint: ABDOMINAL PAIN HPI: HPI: Patient is a 34 year old female presents to the ED with a chief complaint of lower abdominal tenderness. Patient states that the pain has been present for the last 2 to 3 days. Patient states that she recently completed her cycle 5 days ago. Patient is unsure if there is a tampon and her vagina. Patient also states that she is unsure if her boyfriend has been cheating on her. She would like to be tested for STD exposure. Patient denies vaginal bleeding, vaginal spotting, vaginal discharge. Patient denies fever, chills, nausea, vomiting, chest pain, shortness of breath. Review of Systems: Review of Systems: Constitutional: Denies fever or chills. [] Eyes: Denies change in visual acuity. [] HENT: Denies nasal congestion or sore throat. [] Respiratory: Denies cough or shortness of breath. [] Cardiovascular: Denies chest pain or edema. [] GI: Complains of pelvic pain bilaterally [] : Denies dysuria. [] Musculoskeletal: Denies back pain or joint pain. [] Neurologic: Denies headache, focal weakness or sensory changes. [] Heart Score: Risk Factors: Risk Factors: DM, Current or recent (<one month) smoker, HTN, HLP, family history of CAD, obesity. Risk Scores: Score 0 - 3: 2.5% MACE over next 6 weeks - Discharge Home Score 4 - 6: 20.3% MACE over next 6 weeks - Admit for Clinical Observation Score 7 - 10: 72.7% MACE over next 6 weeks - Early Invasive Strategies Current Medications: Current Medications Medications (Trade) Dose Ordered Sig/Sedrick Start Time Stop Time Status Last Admin Dose Admin Info (CONTRAST GIVEN -- Rx MONITORING) 1 each PRN DAILY PRN 09/02/19 22:45 09/04/19 22:44 Iohexol (Omnipaque 300 Mg/ml) 75 ml 1X ONCE 09/02/19 23:00 09/02/19 23:01 DC 09/02/19 23:00 75 ML Morphine Sulfate (Morphine Sulfate) 4 mg 1X ONCE 09/03/19 01:00 7/4/20 01:01 DC 09/03/19 00:44 4 MG Ondansetron HCl (Zofran) 4 mg 1X ONCE 09/03/19 01:00 09/03/19 01:01 DC Piperacillin Sod/ Tazobactam Sod (Zosyn Per Pharmacy) 1 each PRN DAILY PRN 09/03/19 00:30 Piperacillin Sod/ Tazobactam Sod 3.375 gm/Sodium Chloride 50 ml @ 100 mls/hr Q6HRS 09/03/19 01:00 09/03/19 00:45 100 MLS/HR Sodium Chloride 1,000 ml @ 1,000 mls/hr 1X ONCE 09/02/19 22:30 09/02/19 23:29 DC 09/02/19 22:15 1,000 MLS/HR Allergies: Allergies: Allergies Coded Allergies Type Severity Reaction Last Updated Verified No Known Drug Allergies 09/16/13 No Physical Exam: PE: Constitutional: Well developed, well nourished, no acute distress, non-toxic appearance. [] HENT: Normocephalic, atraumatic Eyes: EOMI Neck: Normal range of motion, Supple Cardiovascular:Heart rate regular rhythm Lungs & Thorax: Bilateral breath sounds clear to auscultation [] Abdomen: Lower pelvic tenderness. Vaginal exam: A tampon is removed from the vagina. No discharge seen that is unusual. Extremities: No tenderness, ROM intact Neurologic: Alert and oriented X 3 Current Patient Data: Labs: Laboratory Tests Test 09/02/19 22:10 09/02/19 22:14 09/02/19 22:15 White Blood Count 9.7 x10^3/uL (4.0-11.0) Red Blood Count 4.26 x10^6/uL (3.50-5.40) Hemoglobin 12.9 g/dL (12.0-15.5) Hematocrit 38.4 % (36.0-47.0) Mean Corpuscular Volume 90 fL (79-100) Mean Corpuscular Hemoglobin 30 pg (25-35) Mean Corpuscular Hemoglobin Concent 34 g/dL (31-37) Red Cell Distribution Width 13.9 % (11.5-14.5) Platelet Count 277 x10^3/uL (140-400) Neutrophils (%) (Auto) 57 % (31-73) Lymphocytes (%) (Auto) 36 % (24-48) Monocytes (%) (Auto) 5 % (0-9) Eosinophils (%) (Auto) 2 % (0-3) Basophils (%) (Auto) 1 % (0-3) Neutrophils # (Auto) 5.5 x10^3/uL (1.8-7.7) Lymphocytes # (Auto) 3.5 x10^3/uL (1.0-4.8) Monocytes # (Auto) 0.5 x10^3/uL (0.0-1.1) Eosinophils # (Auto) 0.2 x10^3/uL (0.0-0.7) Basophils # (Auto) 0.1 x10^3/uL (0.0-0.2) Sodium Level 133 mmol/L (136-145) L Potassium Level 3.9 mmol/L (3.5-5.1) Chloride Level 98 mmol/L (98-107) Carbon Dioxide Level 28 mmol/L (21-32) Anion Gap 7 (6-14) Blood Urea Nitrogen 7 mg/dL (7-20) Creatinine 0.9 mg/dL (0.6-1.0) Estimated GFR (Cockcroft-Gault) 87.3 BUN/Creatinine Ratio 8 (6-20) Glucose Level 102 mg/dL (70-99) H Calcium Level 8.7 mg/dL (8.5-10.1) Total Bilirubin 0.2 mg/dL (0.2-1.0) Aspartate Amino Transferase (AST) 45 U/L (15-37) H Alanine Aminotransferase (ALT) 52 U/L (14-59) Alkaline Phosphatase 120 U/L (46-116) H Total Protein 7.7 g/dL (6.4-8.2) Albumin 3.7 g/dL (3.4-5.0) Albumin/Globulin Ratio 0.9 (1.0-1.7) L Lipase 91 U/L (73-393) Urine Collection Type Unknown Urine Color Yellow Urine Clarity Clear Urine pH 6.0 (<5.0-8.0) Urine Specific [place] 1.025 (1.000-1.030) Urine Protein Negative mg/dL (NEG-TRACE) Urine Glucose (UA) Negative mg/dL (NEG) Urine Ketones (Stick) Trace mg/dL (NEG) Urine Blood Negative (NEG) Urine Nitrite Negative (NEG) Urine Bilirubin Negative (NEG) Urine Urobilinogen Dipstick 1.0 mg/dL (0.2 mg/dL) Urine Leukocyte Esterase Moderate (NEG) Urine RBC 0 /HPF (0-2) Urine WBC >40 /HPF (0-4) Urine Squamous Epithelial Cells Mod /LPF Urine Bacteria Moderate /HPF (0-FEW) Urine Mucus Marked /LPF Urine Trichomonas Present POC Urine HCG, Qualitative Hcg negative (Negative) Laboratory Tests 09/02/19 22:10 Laboratory Tests 09/02/19 22:10 Microbiology 09/03/19 Wet Prep - Final, Complete Vital Signs: Vital Signs Date Time Temp Pulse Resp B/P (MAP) Pulse Ox O2 Delivery O2 Flow Rate FiO2 09/03/19 00:44 18 100 09/03/19 00:41 69 130/77 (94) 09/02/19 21:52 99.1 Room Air 99.1 EKG: EKG: [] Radiology/Procedures: Radiology/Procedures: [] Impression: CT ABD/PELVIS CT scan of the abdomen pelvis was done using 75 mL Omnipaque 300 contrast. Comparison is made with a study from May 2017. Lung bases are clear. There is no pleural effusion. There is mild atelectasis. There is a small subpleural nodule along the diaphragm in the left lower lobe without change from the old study. There is mild fatty change in the liver without a focal lesion. There is no calcified gallstone. Adrenal glands are normal. Spleen is unremarkable. A pancreatic lesion is not identified. There is no mass or hydronephrosis in the kidneys. There is no bowel obstruction or ascites. There is diverticulosis without an acute diverticulitis. There is moderate stool in the colon. There is a 2 cm cyst or follicle in the left ovary. There is a trace of free fluid in the pelvis. Probable tampon in the vagina. Appendix is normal. Course & Med Decision Making: Course & Med Decision Making Pertinent Labs and Imaging studies reviewed. (See chart for details) Labs are within normal limits. Patient is afebrile. Tampon has been removed from the vagina. Patient is given IV antibiotics in the ER. Wet prep shows clue cells and signs of bacterial vaginosis. Patient will be discharged home on oral Flagyl and doxycycline. Discussed results and plan of care with patient. Patient is instructed to follow up with PCP in one to 2 days. Appropriate discharge instructions given to patient to return to the ED or to seek immediate medical evaluation. Patient is instructed to return to the ED if symptoms worsen or if any concerns. Dragon Disclaimer: Dragon Disclaimer: This electronic medical record was generated, in whole or in part, using a voice recognition dictation system. Departure Departure Impression: Primary Impression: Pelvic pain Additional Impressions: Retained tampon Bacterial vaginosis Ovarian cyst Disposition: HOME, SELF-CARE Condition: IMPROVED Referrals: BECKY WALKER MD (PCP) Patient Instructions: Bacterial Vaginosis, Ovarian Cyst, Pelvic Exam Additional Instructions: Discussed results and plan of care with patient. Patient is instructed to follow up with PCP in one to 2 days. Appropriate discharge instructions given to patient to return to the ED or to seek immediate medical evaluation. Patient is instructed to return to the ED if symptoms worsen or if any concerns. Scripts Doxycycline Hyclate (DOXYCYCLINE HYCLATE) 100 Mg Capsule 1 CAP PO BID, #20 CAP Prov: OTILIA LOVE DO 09/03/19 Metronidazole (FLAGYL) 500 Mg Tablet 500 MG PO TID for 7 Days, #21 TAB Prov: OTILIA LOVE DO 09/03/19 Justicifation of Admission Dx: Justifications for Admission: Justification of Admission Dx: No OTILIA LOVE DO Sep 03, 2019 01:10
[2019-09-03 01:27] VITALS: BP 120/103
[2019-09-06 19:09] LABS: GC PROBE Negative (Negative)
== END 2019-09-03 01:30 | disposition home or self-care (01) ==
LOC: ER 21:13
DX: T19.2XXA Foreign body in vulva and vagina, initial encounter (principal); N83.202 Unspecified ovarian cyst, left side; N76.0 Acute vaginitis; B96.89 Other specified bacterial agents as the cause of diseases classified elsewhere; K57.90 Diverticulosis of intestine, part unspecified, without perforation or abscess without bleeding; K76.0 Fatty (change of) liver, not elsewhere classified; F17.200 Nicotine dependence, unspecified, uncomplicated; X58.XXXA Exposure to other specified factors, initial encounter; Y93.89 Activity, other specified; Y92.89 Other specified places as the place of occurrence of the external cause; Y99.8 Other external cause status
CPT/HCPCS: 36415; 74177; 80053; 81001; 81025; 83690; 85025; 87086; 87491; 87591; 96365; 96375; 96376; 99285; J2270; J2405; J2543; J7030; Q0111; Q9967

== ENCOUNTER 2019-12-04 17:25 | Emergency (ER) | payer OTHER ==
[~2019-12-04] VITALS: Ht 162.6 cm; Wt 67.0 kg
[~2019-12-04 17:25] MED LIST changes: +DOXY100C2 PO
[2019-12-04 17:35] VITALS: BP 136/92
--- NOTE | 2019-12-04 18:22 | PHYS DOC ---
Past Medical History Past Medical History: Diabetes-Type II, Other Additional Past Medical Histor: CHRONIC HIVES, OVARIAN CYSTS Past Surgical History: Smoking Status: Current Every Day Smoker Alcohol Use: Occasionally Drug Use: None General Adult EDM: Chief Complaint: VAGINAL BLEEDING HPI: HPI: Patient is a 34 year old G5, P1 female whose last menstrual period was October 04 presents with a 4-day history of vaginal bleeding. Patient had a positive test in mid October but started having bleeding with clots and moderate lower abdominal cramping pain that is nonradiating. Pain is worse with palpation. Patient is also have some dizziness and some mild shortness of breath. Review of Systems: Review of Systems: Constitutional: Denies fever or chills. [] Eyes: Denies change in visual acuity. [] HENT: Denies nasal congestion or sore throat. [] Respiratory: Denies cough but has mild shortness of breath Cardiovascular: Denies chest pain or edema. [] GI: Complains of mild lower abdominal pain but no nausea, vomiting, bloody stools or diarrhea. [] : Complains of vaginal bleeding Musculoskeletal: Denies back pain or joint pain. [] Integument: Denies rash. [] Neurologic: Denies headache, focal weakness but has mild dizziness Endocrine: Denies polyuria or polydipsia. [] Lymphatic: Denies swollen glands. [] Psychiatric: Denies depression or anxiety. [] Heart Score: Risk Factors: Risk Factors: DM, Current or recent (<one month) smoker, HTN, HLP, family history of CAD, obesity. Risk Scores: Score 0 - 3: 2.5% MACE over next 6 weeks - Discharge Home Score 4 - 6: 20.3% MACE over next 6 weeks - Admit for Clinical Observation Score 7 - 10: 72.7% MACE over next 6 weeks - Early Invasive Strategies Allergies: Allergies: Allergies Coded Allergies Type Severity Reaction Last Updated Verified No Known Drug Allergies 09/16/13 No Physical Exam: PE: Constitutional: Well developed, well nourished, no acute distress, non-toxic appearance. [] HENT: Normocephalic, atraumatic, bilateral external ears normal, no trismus nose normal. [] Eyes: PERRLA, EOMI, conjunctiva normal, no discharge. [] Neck: Normal range of motion, no tenderness, supple, no stridor. [] Cardiovascular:Heart rate regular rhythm, peripheral pulse intact, cap refill is brisk Lungs & Thorax: Bilateral breath sounds clear, no respiratory distress Abdomen: Soft and mild lower abdominal tenderness without guarding or rebound, no masses, no pulsatile masses. [] Skin: Warm, dry, no erythema, no rash. [] Back: No tenderness, no CVA tenderness. [] Extremities: No tenderness, no cyanosis, no clubbing, ROM intact, no edema. [] Neurologic: Alert and oriented X 3, normal motor function, normal sensory function, no focal deficits noted. [] Psychologic: Affect normal, judgement normal, mood normal. [] Current Patient Data: Labs: Laboratory Tests Test 12/04/19 17:52 12/04/19 18:20 12/04/19 18:29 Bedside Urine HCG, Qualitative Hcg negative Urine Collection Type Unknown Urine Color Yellow Urine Clarity Clear Urine pH 8.0 Urine Specific [place] 1.010 Urine Protein Negative mg/dL Urine Glucose (UA) Negative mg/dL Urine Ketones (Stick) Negative mg/dL Urine Blood Small Urine Nitrite Negative Urine Bilirubin Negative Urine Urobilinogen Dipstick 1.0 mg/dL Urine Leukocyte Esterase Small Urine RBC 3-5 /HPF Urine WBC 11-20 /HPF Urine Squamous Epithelial Cells Mod /LPF Urine Bacteria Moderate /HPF Urine Mucus Slight /LPF White Blood Count 8.3 x10^3/uL Red Blood Count 3.76 x10^6/uL Hemoglobin 11.2 g/dL Hematocrit 34.0 % Mean Corpuscular Volume 90 fL Mean Corpuscular Hemoglobin 30 pg Mean Corpuscular Hemoglobin Concent 33 g/dL Red Cell Distribution Width 14.7 % Platelet Count 240 x10^3/uL Neutrophils (%) (Auto) 60 % Lymphocytes (%) (Auto) 30 % Monocytes (%) (Auto) 6 % Eosinophils (%) (Auto) 4 % Basophils (%) (Auto) 1 % Neutrophils # (Auto) 5.0 x10^3/uL Lymphocytes # (Auto) 2.5 x10^3/uL Monocytes # (Auto) 0.5 x10^3/uL Eosinophils # (Auto) 0.3 x10^3/uL Basophils # (Auto) 0.0 x10^3/uL Maternal Serum HCG Beta Subunit < 1 mIU/mL Sodium Level 134 mmol/L Potassium Level 3.9 mmol/L Chloride Level 103 mmol/L Carbon Dioxide Level 24 mmol/L Anion Gap 7 Blood Urea Nitrogen 7 mg/dL Creatinine 0.7 mg/dL Estimated GFR (Cockcroft-Gault) 116.6 Glucose Level 103 mg/dL Calcium Level 8.7 mg/dL Laboratory Tests Test 12/04/19 17:52 POC Urine HCG, Qualitative Hcg negative (Negative) Vital Signs: Vital Signs Date Time Temp Pulse Resp B/P (MAP) Pulse Ox O2 Delivery O2 Flow Rate FiO2 12/04/19 17:35 98.6 89 16 136/92 (107) 96 Room Air 98.6 Vital Signs Date Time Temp Pulse Resp B/P (MAP) Pulse Ox O2 Delivery O2 Flow Rate FiO2 12/04/19 17:35 98.6 89 16 136/92 (107) 96 Room Air 98.6 EKG: EKG: [] Radiology/Procedures: Radiology/Procedures: [][facility] [address] [place] [address] IMAGING REPORT Signed PATIENT: MELISSA MCDERMOTT DACCOUNT: [id number] : 1985 LOCATION: ER AGE: 34 SEX: F EXAM STATUS: REG ER ORD. PHYSICIAN: TAHIRA MARTINS MD REASON: vag bleed, lmp 8/5 PROCEDURE: PELVIS ULTRASOUND PELVIS ULTRASOUND History: Reason: vag bleed, lmp 8/5 / Spl. Instructions: / History: Comparison: None. Technique: Grayscale and color Doppler imaging of the pelvis was performed using transabdominal technique. Findings: The uterus measures 9.3 x 5.8 x 5.2 cm. Uterus has an unremarkable appearance. The endometrial stripe measures 4.5 mm. Right ovary measures 2.5 x 1.3 x 1.2 cm. Left ovary measures 2.7 x 2.2 x 1.2 cm. Normal Doppler flow to the ovaries. No adnexal masses are seen. Trace free fluid, likely physiologic. IMPRESSION: 1. Unremarkable pelvic ultrasound. Electronically signed by: Tony Izquierdo DO (12/04/2019 7:26 PM) [facility] DICTATED and SIGNED BY: TONY IZQUIERDO DO DATE: 12/04/191925 Course & Med Decision Making: Course & Med Decision Making Pertinent Labs and Imaging studies reviewed. (See chart for details) [] Old records reviewed, patient is Rh+ G5, P1 female whose last menstrual period was about 2 months ago presents with 4 days of vaginal bleeding with clots and pain. Patient had a positive test in mid October but her test is negative. Either patient had a false positive or has completed her miscarriage. Patient is hemodynamically stable. Patient referrals to OB with return precautions. Dragon Disclaimer: Dragon Disclaimer: This electronic medical record was generated, in whole or in part, using a voice recognition dictation system. Departure Departure Impression: Primary Impression: Pelvic pain Additional Impression: Vaginal bleeding Disposition: HOME, SELF-CARE Referrals: BECKY WALKER MD (PCP) CYNTHIA IZQUIERDO MD 2-3 DAYS Patient Instructions: Miscarriage Additional Instructions: EMERGENCY DEPARTMENT GENERAL DISCHARGE INSTRUCTIONS THANK YOU for coming to [facility] Emergency Department (ED) today and trusting us with your care. We trust that you had a positive experience in our Emergency Department. If you wish to speak to the department Management you can contact the land department head at . YOUR FOLLOW UP INSTRUCTIONS ARE FOLLOWS: Do you have a private doctor? If you do not have a private doctor, please ask for a resource list of physicians or clinics that may be able to assist you with follow up care. The Emergency Physician has interpreted your x-rays. The X-ray specialist will also review them. If there is a change in the findings you will be notified in 48 hours when at all possible. A lab test or lab culture may have been done, your results will be reviewed and you will be notified if you need a change in treatment. ADDITIONAL INSTRUCTIONS AND INFORMATION Your care today has been supervised by a physician who is specially trained in emergency care. Many problems require more than one evaluation for a complete diagnosis and treatment. We recommend that you schedule your follow up appointment as recommended to ensure complete treatment of your illness or injury. If you are unable to obtain follow up care and continue to have a problem, or if your condition worsens we recommend that you return to the ED. We are not able to safely determine your condition over the phone nor are we able to give sound medical advice over the phone. For these safety reasons, if you call for medical advice we will ask you to come to the ED for further evaluation If you have any questions regarding these discharge instructions please call the ED at . SAFETY INFORMATION In the interest of safety, wellness, and injury prevention; we encourage you to wear your seatbelt, if you smoke; quit smoking, and we encourage your family to use protective helmet for bicycling and other sporting events that present an increased risk for head injury. IF YOUR SYMPTOMS WORSEN OR NEW SYMPTOMS DEVELOP, OR YOU HAVE CONCERNS ABOUT YOUR CONDITION; OR IF YOUR CONDITION WORSENS WHILE YOU ARE WAITING FOR YOUR FOLLOW UP APPOINTMENT; EITHER CONTACT YOUR PRIMARY CARE DOCTOR, THE PHYSICIAN WHOSE NAME AND NUMBER YOU WERE GIVEN, OR RETURN TO THE ED IMMEDIATELY. Scripts Ibuprofen (IBUPROFEN) 600 Mg Tablet 600 MG PO PRN Q6HRS PRN for PAIN, #20 TAB take with food or milk Prov: TAHIRA MARTINS MD 12/04/19 TAHIRA MARTINS MD Dec 04, 2019 18:22
[2019-12-04 18:29] LABS: BILIRUBIN,URINE NEGATIVE (NEG); CLARITY,URINE CLEAR; COLOR,URINE YELLOW; NITRITE,URINE NEGATIVE (NEG); PROTEIN,URINE NEGATIVE (NEG-TRACE)
[2019-12-04 18:33] LABS: BASO % 1 % (0-3); EOS # 0.3 x10^3/uL (0.0-0.7); EOS % 4 % (0-3); HEMOGLOBIN 11.2 g/dL (12.0-15.5); LYMPH # 2.5 x10^3/uL (1.0-4.8); LYMPH % 30 % (24-48); MEAN CORPUSCULAR HEMOGLOBIN 30 pg (25-35); MEAN CORPUSCULAR HGB CONC 33 g/dL (31-37); MEAN CORPUSCULAR VOLUME 90 fL (79-100); MONO # 0.5 x10^3/uL (0.0-1.1); MONO % 6 % (0-9); NEUT % 60 % (31-73); PLATELET COUNT 240 x10^3/uL (140-400); RED BLOOD COUNT 3.76 x10^6/uL (3.50-5.40); RED CELL DISTRIBUTION WIDTH 14.7 % (11.5-14.5); WHITE BLOOD COUNT 8.3 x10^3/uL (4.0-11.0)
[2019-12-04 18:34] LABS: BACTERIA,URINE MODERATE /HPF (0-FEW)
[2019-12-04 18:43] LABS: CALCIUM 8.7 mg/dL (8.5-10.1); CREATININE 0.7 mg/dL (0.6-1.0); GFR 116.6; POTASSIUM 3.9 mmol/L (3.5-5.1)
--- NOTE | 2019-12-04 19:29 | RAD ---
PELVIS ULTRASOUND History: Reason: vag bleed, lmp 10/04. Instructions: / History: Comparison: None. Technique: Grayscale and color Doppler imaging of the pelvis was performed using transabdominal technique. Findings: The uterus measures 9.3 x 5.8 x 5.2 cm. Uterus has an unremarkable appearance. The endometrial stripe measures 4.5 mm. Right ovary measures 2.5 x 1.3 x 1.2 cm. Left ovary measures 2.7 x 2.2 x 1.2 cm. Normal Doppler flow to the ovaries. No adnexal masses are seen. Trace free fluid, likely physiologic. IMPRESSION: 1. Unremarkable pelvic ultrasound. Electronically signed by: Tony Izquierdo DO (12/04/2019 7:26 PM) [facility]
[2019-12-04] MEDS ORDERED: IBUP-1007 PO (19:36)
[2019-12-04] MEDS ORDERED: KETOROLAC 30 MG/ML VIAL. IM ONE (19:45)
== END 2019-12-04 19:30 | disposition home or self-care (01) ==
LOC: ER 17:25
DX: O46.91 Antepartum hemorrhage, unspecified, first trimester (principal); R10.2 Pelvic and perineal pain; R10.30 Lower abdominal pain, unspecified; R42 Dizziness and giddiness; E11.9 Type 2 diabetes mellitus without complications; F17.200 Nicotine dependence, unspecified, uncomplicated; Z3A.01 Less than 8 weeks gestation of pregnancy
CPT/HCPCS: 36415; 76856; 80048; 81001; 81025; 84702; 85025; 87086; 96372; 99284; J1885

== ENCOUNTER 2020-01-16 17:53 | Emergency (ER) | payer OTHER ==
[~2020-01-16] VITALS: Ht 162.6 cm; Wt 65.9 kg
[~2020-01-16 17:53] MED LIST changes: +IBUP-1007 PO
[2020-01-16] MEDS ORDERED: IV NORMAL SALINE 1000ML BAG 1,000 ML IV SCH (19:53)
[2020-01-16] MEDS ORDERED: fentaNYL PF VIAL 100 MCG/2 ML VIAL IVP ONE (20:00)
[2020-01-16] MEDS ORDERED: ACETAMINOPHEN 500 MG TABLET PO ONE (20:00)
[2020-01-16 20:37] LABS: BILIRUBIN,URINE NEGATIVE (NEG); CLARITY,URINE CLOUDY; COLOR,URINE YELLOW; NITRITE,URINE POSITIVE (NEG); PH,URINE 5.5 (<5.0-8.0); PROTEIN,URINE NEGATIVE (NEG-TRACE); UROBILINOGEN,URINE 0.2 mg/dL (0.2 mg/dL)
[2020-01-16 20:38] LABS: BASO % 0 % (0-3); EOS # 0.1 x10^3/uL (0.0-0.7); EOS % 1 % (0-3); HEMATOCRIT 34.3 % (36.0-47.0); HEMOGLOBIN 11.1 g/dL (12.0-15.5); LYMPH # 1.6 x10^3/uL (1.0-4.8); LYMPH % 14 % (24-48); MEAN CORPUSCULAR HEMOGLOBIN 28 pg (25-35); MEAN CORPUSCULAR HGB CONC 33 g/dL (31-37); MEAN CORPUSCULAR VOLUME 87 fL (79-100); MONO # 1.1 x10^3/uL (0.0-1.1); MONO % 10 % (0-9); NEUT # 8.4 x10^3/uL (1.8-7.7); NEUT % 75 % (31-73); PLATELET COUNT 291 x10^3/uL (140-400); RED BLOOD COUNT 3.92 x10^6/uL (3.50-5.40); RED CELL DISTRIBUTION WIDTH 15.4 % (11.5-14.5); WHITE BLOOD COUNT 11.2 x10^3/uL (4.0-11.0)
--- NOTE | 2020-01-16 20:38 | PHYS DOC ---
Past Medical History Past Medical History: Diabetes-Type II, Other Additional Past Medical Histor: CHRONIC HIVES, OVARIAN CYSTS Past Surgical History: Smoking Status: Current Every Day Smoker Alcohol Use: Occasionally Drug Use: None General Adult EDM: Chief Complaint: BACK PAIN OR INJURY HPI: HPI: Patient is a 34 year old female who presents with yesterday when she awoke she stretched and then had a left back pain. She states that it hurts when she takes a deep breath but otherwise it just "feels funny" in the left flank. She states it does not really hurt with movement but if she takes a deep breath it hurts. She currently has no pain. She denies pain, abdominal pain, nausea, vomiting, diarrhea, cough, shortness of air, urinary symptoms, chest pain. She does have a fever in the ED. She states she is been having some chills. She has no other symptoms. Patient has a history of chronic hives, ovarian cyst, recent miscarriage without a D&C a month ago, diabetes, smoker. Review of Systems: Review of Systems: Constitutional: + fever or chills. [] Eyes: Denies change in visual acuity. [] HENT: Denies nasal congestion or sore throat. [] Respiratory: Denies cough or shortness of breath. [] Cardiovascular: Denies chest pain or edema. [] GI: Denies abdominal pain, nausea, vomiting, bloody stools or diarrhea. [] : Denies dysuria. [] Musculoskeletal: + Left flank back pain or denies joint pain. [] Integument: Denies rash. [] Neurologic: Denies headache, focal weakness or sensory changes. [] Endocrine: Denies polyuria or polydipsia. [] Lymphatic: Denies swollen glands. [] Psychiatric: Denies depression or anxiety. [] Heart Score: Risk Factors: Risk Factors: DM, Current or recent (<one month) smoker, HTN, HLP, family history of CAD, obesity. Risk Scores: Score 0 - 3: 2.5% MACE over next 6 weeks - Discharge Home Score 4 - 6: 20.3% MACE over next 6 weeks - Admit for Clinical Observation Score 7 - 10: 72.7% MACE over next 6 weeks - Early Invasive Strategies Current Medications: Current Medications Medications (Trade) Dose Ordered Sig/Sedrick Start Time Stop Time Status Last Admin Dose Admin Acetaminophen (Tylenol) 1,000 mg 1X ONCE 01/16/20 20:00 01/16/20 20:01 DC 01/16/20 20:21 1,000 MG Fentanyl Citrate (Fentanyl 2ml Vial) 25 mcg 1X ONCE 01/16/20 20:00 01/16/20 20:01 DC 01/16/20 20:22 25 MCG Sodium Chloride 1,000 ml @ 1,000 mls/hr Q1H 01/16/20 19:53 01/16/20 20:52 01/16/20 20:30 1,000 MLS/HR Allergies: Allergies: Allergies Coded Allergies Type Severity Reaction Last Updated Verified No Known Drug Allergies 09/16/13 No Physical Exam: PE: Constitutional: Well developed, well nourished, no acute distress, non-toxic appearance. [] HENT: Normocephalic, atraumatic, bilateral external ears normal, oropharynx moist, no oral exudates, nose normal. [] Eyes: PERRLA, EOMI, conjunctiva normal, no discharge. [] Neck: Normal range of motion, no tenderness, supple, no stridor. [] Cardiovascular:Heart rate regular rhythm, no murmur [] Lungs & Thorax: Bilateral breath sounds clear to auscultation [] Abdomen: Bowel sounds normal, soft, no tenderness, no masses, no pulsatile masses. [] Skin: Warm, dry, no erythema, no rash. [] Back: No tenderness, no CVA tenderness. [] Extremities: No tenderness, no cyanosis, no clubbing, ROM intact, no edema. [] Neurologic: Alert and oriented X 3, normal motor function, normal sensory function, no focal deficits noted. [] Psychologic: Affect normal, judgement normal, mood normal. Normal physical exam [] Current Patient Data: Vital Signs: Vital Signs Date Time Temp Pulse Resp B/P (MAP) Pulse Ox O2 Delivery O2 Flow Rate FiO2 01/16/20 20:22 20 100 Room Air 01/16/20 19:38 102.8 93 130/68 (88) 102.8 EKG: EKG: [] Radiology/Procedures: Radiology/Procedures: [] Impression: [facility] [address] [place] [address] IMAGING REPORT Signed PATIENT: MELISSA MCDERMOTT DACCOUNT: [id number] : 1985 LOCATION: ER AGE: 34 SEX: F EXAM STATUS: REG ER ORD. PHYSICIAN: NELSY SCHMID APRN REASON: pain with breathing PUI PROCEDURE: CT ANGIOGRAPHY CHEST Exam: CT of chest with contrast INDICATION: Pain with breathing TECHNIQUE: Sequential axial images through the chest obtained following the administration of 90 mL of Isovue-370 IV contrast. Sagittal and coronal reformatted images were reconstructed from the axial data and reviewed. 3-D reformatted images were reconstructed from the axial data and reviewed. Comparisons: None FINDINGS: Visualized portions of the thyroid are unremarkable. No enlarged mediastinal lymph nodes are identified. Heart size is normal. No pericardial effusion. Thoracic aorta has a normal course and caliber. Pulmonary artery is not enlarged. No pulmonary embolus identified within the main, lobar or segmental pulmonary arteries. Airways are patent. No consolidation or pneumothorax. Strandy opacities at dependent portion lungs likely representing atelectasis. No suspicious lung nodules. No pleural effusion or thickening. Visualized upper abdomen is unremarkable. No suspicious osseous lesions or acute fractures. IMPRESSION: No pulmonary embolus identified within the main, lobar or segmental pulmonary arteries. Exposure: One or more of the following in the visualized dose reduction techniques were utilized for this examination: 1. Automated exposure control 2. Adjustment of the MA and/or KV according to patient size 3. Use of iterative of reconstructive technique Electronically signed by: Foster Cheney MD (01/16/2020 10:14 PM) [facility] DICTATED and SIGNED BY: FOSTER CHENEY MD DATE: 01/16/20 2214 [facility] [address] [place] [address] IMAGING REPORT Signed PATIENT: MELISSA MCDERMOTT DACCOUNT: [id number] : 1985 LOCATION: ER AGE: 34 SEX: F EXAM STATUS: REG ER ORD. PHYSICIAN: NELSY SCHMID APRN REASON: left flank, fever PROCEDURE: CT ABDOMEN PELVIS WO CONTRAST Exam: CT of abdomen and pelvis without contrast INDICATION: Left flank pain, fever TECHNIQUE: Sequential axial images through the abdomen and pelvis obtained without IV contrast. Sagittal and coronal reformatted images were reconstructed from the axial data and reviewed. Comparisons: 09/02/2019 FINDINGS: Heart size is normal. No pericardial effusion. Strandy opacities at the dependent portion lungs likely representing atelectasis. No pleural effusion. Evaluation of solid organs is limited secondary to noncontrast technique. Liver, spleen, pancreas, gallbladder and adrenals are unremarkable. No hydronephrosis. There is minimal perinephric stranding along the left kidney. No renal or ureteral calculi are identified. Bladder is partially distended and appears thin-walled. Uterus is not enlarged. No abnormal adnexal mass. Few scattered diverticula noted in the sigmoid colon without evidence of acute diverticulitis. Remainder of the large and small bowel are unremarkable. Appendix is normal. No free intra-abdominal air or fluid. No obstruction. Abdominal aorta has a normal course and caliber. No enlarged abdominal lymph nodes are identified. No suspicious osseous lesions or acute fractures. IMPRESSION: 1. Minimal left-sided perinephric stranding. Correlate with urinalysis for infection. 2. No renal or ureteral calculi. No evidence for obstructive uropathy. Exposure: One or more of the following in the visualized dose reduction techniques were utilized for this examination: 1. Automated exposure control 2. Adjustment of the MA and/or KV according to patient size 3. Use of iterative of reconstructive technique Electronically signed by: Foster Cheney MD (01/16/2020 10:00 PM) [facility] DICTATED and SIGNED BY: FOSTER CHENEY MD DATE: 01/16/202199 [facility] [address] [place] [address] IMAGING REPORT Signed PATIENT: MELISSA MCDERMOTT DACCOUNT: [id number] : 1985 LOCATION: ER AGE: 34 SEX: F EXAM STATUS: REG ER ORD. PHYSICIAN: NELSY SCHMID APRN REASON: pain with breathing PROCEDURE: PORTABLE CHEST 1V AP chest x-ray HISTORY: Chest pain with breathing. FINDINGS: Heart size normal. Mediastinal silhouette is normal. No pneumothorax, pulmonary opacities or pleural effusions. Bones are unremarkable. IMPRESSION: No acute process. Electronically signed by: Nellie Fernandes MD (01/16/2020 10:11 PM) [facility] and SIGNED BY: NELLIE FERNANDES MD DATE: 01/16/202210 Course & Med Decision Making: Course & Med Decision Making Pertinent Labs and Imaging studies reviewed. (See chart for details) See HPI. No CVA tenderness. Abdomen soft and nontender. Alert and oriented x4. Ambulatory with a steady gait. Lungs are clear to auscultation all lobes. Skin pink warm and dry. Patient is given IV fluids and Tylenol in the ED. Urinalysis shows infection. She is given Tylenol and Rocephin IV. Patient is also given fluid. Blood cell count is normal, heart rate is normal, lactic acid is normal and there are no bands. Patient is stable and tolerating p.o. fluids. She will be sent home on Keflex antibiotic and to follow-up with her primary care physician. [] Dragon Disclaimer: Dragon Disclaimer: This electronic medical record was generated, in whole or in part, using a voice recognition dictation system. Departure Departure Impression: Primary Impression: Person under investigation for COVID-19 Additional Impression: Pyelonephritis Disposition: 01 DC HOME SELF CARE/HOMELESS Condition: STABLE Referrals: BECKY WALKER MD (PCP) Patient Instructions: Pyelonephritis, Adult Additional Instructions: Follow-up with primary care provider. Drink plenty of water. Take medication with food and as prescribed. If you begin vomiting nonstop return to the emergency room. Take Tylenol or ibuprofen for your fever and pain. Scripts Cephalexin (KEFLEX) 500 Mg Capsule 1 CAP PO BID for 10 Days, #20 CAP 0 Refills Prov: NELSY SCHMID APRN 01/16/20 NELSY SCHMID APRN Jan 16, 2020 20:38
[2020-01-16 20:41] LABS: BARBITURATES NEG (NEG); BENZODIAZEPINES NEG (NEG); CALCIUM 8.7 mg/dL (8.5-10.1); CANNABINOIDS NEG (NEG); COCAINE POS (NEG); CREATININE 0.8 mg/dL (0.6-1.0); METHADONE NEG (NEG); OPIATES NEG (NEG); PHENCYCLIDINE NEG (NEG); POTASSIUM 3.9 mmol/L (3.5-5.1)
[2020-01-16 20:43] LABS: AMPHETAMINE/METHAMPHETAMINE NEG (NEG); BACTERIA,URINE MANY /HPF (0-FEW); RBC,URINE OCC /HPF (0-2)
[2020-01-16 20:46] LABS: ALBUMIN 3.2 g/dL (3.4-5.0); ALBUMIN/GLOBULIN RATIO 0.7 (1.0-1.7); TOTAL BILIRUBIN 0.3 mg/dL (0.2-1.0); TOTAL PROTEIN 7.8 g/dL (6.4-8.2)
[2020-01-16] MEDS ORDERED: cefTRIAXone IV Push 1 GM VIAL. IVP ONE (21:00)
[2020-01-16] MEDS ORDERED: CONTRAST GIVEN. MC PRN (21:15)
[2020-01-16] MEDS ORDERED: IOHEXOL 350 MG/ML 100 ML VIAL. IV ONE (21:15)
--- NOTE | 2020-01-16 22:03 | RAD ---
Exam: CT of abdomen and pelvis without contrast INDICATION: Left flank pain, fever TECHNIQUE: Sequential axial images through the abdomen and pelvis obtained without IV contrast. Sagittal and coronal reformatted images were reconstructed from the axial data and reviewed. Comparisons: 09/02/2019 FINDINGS: Heart size is normal. No pericardial effusion. Strandy opacities at the dependent portion lungs likely representing atelectasis. No pleural effusion. Evaluation of solid organs is limited secondary to noncontrast technique. Liver, spleen, pancreas, gallbladder and adrenals are unremarkable. No hydronephrosis. There is minimal perinephric stranding along the left kidney. No renal or ureteral calculi are identified. Bladder is partially distended and appears thin-walled. Uterus is not enlarged. No abnormal adnexal mass. Few scattered diverticula noted in the sigmoid colon without evidence of acute diverticulitis. Remainder of the large and small bowel are unremarkable. Appendix is normal. No free intra-abdominal air or fluid. No obstruction. Abdominal aorta has a normal course and caliber. No enlarged abdominal lymph nodes are identified. No suspicious osseous lesions or acute fractures. IMPRESSION: 1. Minimal left-sided perinephric stranding. Correlate with urinalysis for infection. 2. No renal or ureteral calculi. No evidence for obstructive uropathy. Exposure: One or more of the following in the visualized dose reduction techniques were utilized for this examination: 1. Automated exposure control 2. Adjustment of the MA and/or KV according to patient size 3. Use of iterative of reconstructive technique Electronically signed by: Foster Lam MD (01/16/2020 10:00 PM) [facility]
--- NOTE | 2020-01-16 22:14 | RAD ---
AP chest x-ray HISTORY: Chest pain with breathing. FINDINGS: Heart size normal. Mediastinal silhouette is normal. No pneumothorax, pulmonary opacities or pleural effusions. Bones are unremarkable. IMPRESSION: No acute process. Electronically signed by: Anthony Fernandes MD (01/16/2020 10:11 PM) [facility]
--- NOTE | 2020-01-16 22:18 | RAD ---
Exam: CT of chest with contrast INDICATION: Pain with breathing TECHNIQUE: Sequential axial images through the chest obtained following the administration of 90 mL of Isovue-370 IV contrast. Sagittal and coronal reformatted images were reconstructed from the axial data and reviewed. 3-D reformatted images were reconstructed from the axial data and reviewed. Comparisons: None FINDINGS: Visualized portions of the thyroid are unremarkable. No enlarged mediastinal lymph nodes are identified. Heart size is normal. No pericardial effusion. Thoracic aorta has a normal course and caliber. Pulmonary artery is not enlarged. No pulmonary embolus identified within the main, lobar or segmental pulmonary arteries. Airways are patent. No consolidation or pneumothorax. Strandy opacities at dependent portion lungs likely representing atelectasis. No suspicious lung nodules. No pleural effusion or thickening. Visualized upper abdomen is unremarkable. No suspicious osseous lesions or acute fractures. IMPRESSION: No pulmonary embolus identified within the main, lobar or segmental pulmonary arteries. Exposure: One or more of the following in the visualized dose reduction techniques were utilized for this examination: 1. Automated exposure control 2. Adjustment of the MA and/or KV according to patient size 3. Use of iterative of reconstructive technique Electronically signed by: Foster Lam MD (01/16/2020 10:14 PM) [facility]
[2020-01-16] MEDS ORDERED: CEPH-264 PO (22:47)
[2020-01-16 23:45] VITALS: BP 123/65
== END 2020-01-17 00:13 | disposition home or self-care (01) ==
LOC: ER 17:53
DX: N12 Tubulo-interstitial nephritis, not specified as acute or chronic (principal); Z20.828 Contact with and (suspected) exposure to other viral communicable diseases; M54.9 Dorsalgia, unspecified; R50.9 Fever, unspecified; E11.9 Type 2 diabetes mellitus without complications; F17.200 Nicotine dependence, unspecified, uncomplicated; Z98.890 Other specified postprocedural states
CPT/HCPCS: 36415; 71045; 71275; 74176; 80053; 80307; 81001; 81025; 83605; 83690; 85025; 85379; 87086; 96361; 96374; 96375; 99285; J0696; J3010; J7030; Q9967

== ENCOUNTER 2020-06-25 17:55 | Emergency (ER) | payer OTHER ==
[~2020-06-25] VITALS: Ht 162.6 cm; Wt 70.0 kg
[~2020-06-25 17:55] MED LIST changes: +CEPH-264 PO
[2020-06-25 18:44] LABS: BILIRUBIN,URINE NEGATIVE (NEG); CLARITY,URINE CLEAR; COLOR,URINE YELLOW; NITRITE,URINE NEGATIVE (NEG); PROTEIN,URINE NEGATIVE (NEG-TRACE); UROBILINOGEN,URINE 0.2 mg/dL (0.2 mg/dL)
[2020-06-25 19:06] LABS: BACTERIA,URINE 0 /HPF (0-FEW); RBC,URINE 0 /HPF (0-2); WBC,URINE 0 /HPF (0-4)
[2020-06-25] MEDS ORDERED: ONDANSETRON PF 4 MG/2 ML VIAL. IV ONE (19:30)
[2020-06-25] MEDS ORDERED: IV NORMAL SALINE 1000ML BAG 1,000 ML IV ONE (19:30)
[2020-06-25] MEDS ORDERED: fentaNYL PF VIAL 100 MCG/2 ML VIAL IV ONE ×2 (19:30→21:45)
[2020-06-25 19:54] LABS: CALCIUM 8.4 mg/dL (8.5-10.1); CREATININE 0.7 mg/dL (0.6-1.0); GFR 115.9; POTASSIUM 4.3 mmol/L (3.5-5.1)
[2020-06-25 20:00] LABS: ALBUMIN 3.2 g/dL (3.4-5.0); ALBUMIN/GLOBULIN RATIO 0.9 (1.0-1.7); MAGNESIUM 1.9 mg/dL (1.8-2.4); TOTAL BILIRUBIN 0.1 mg/dL (0.2-1.0); TOTAL PROTEIN 6.9 g/dL (6.4-8.2)
[2020-06-25] MEDS ORDERED: CONTRAST GIVEN. MC PRN (20:00)
[2020-06-25] MEDS ORDERED: IOHEXOL 300 MG/ML 100ML VIAL. IV ONE (20:00)
--- NOTE | 2020-06-25 20:44 | ED.ADGEN ---
Past Medical History Past Medical History: Diabetes-Type II, Other Additional Past Medical Histor: CHRONIC HIVES, OVARIAN CYSTS Past Surgical History: Smoking Status: Current Every Day Smoker Alcohol Use: Occasionally Drug Use: None General Adult EDM: Chief Complaint: ABDOMINAL PAIN HPI: HPI: Patient is a 35 year old AA female who presents emergency department with complaints of left-sided abdominal pain with nausea, and vomiting since yesterday. Patient denies any diarrhea however she reports she has had 3 bowel movements today. She states that the symptoms began after she had ate some Polish food yesterday. She denies any fever, cough, shortness of breath, body aches, fatigue, dizziness, syncope, chest pain, or constipation. She denies any dysuria, hematuria, or increased urinary frequency. She currently rates her pain a 10 out of 10 on pain scale describes it as a sharp pain in her left abdomen that increases with palpation. Review of Systems: Review of Systems: Complete ROS is negative unless otherwise noted in HPI. Current Medications: Current Medications Medications (Trade) Dose Ordered Sig/Sedrick Start Time Stop Time Status Last Admin Dose Admin Fentanyl Citrate (Fentanyl 2ml Vial) 50 mcg 1X ONCE 06/25/20 21:45 06/25/20 21:46 DC 06/25/20 21:56 50 MCG Info (CONTRAST GIVEN -- Rx MONITORING) 1 each PRN DAILY PRN 06/25/20 20:00 06/26/20 01:16 DC Iohexol (Omnipaque 300 Mg/ml) 75 ml 1X ONCE 06/25/20 20:00 06/25/20 20:01 DC 06/25/20 20:45 75 ML Ondansetron HCl (Zofran) 4 mg 1X ONCE 06/25/20 19:30 06/25/20 19:31 DC 06/25/20 19:44 4 MG Sodium Chloride 1,000 ml @ 1,000 mls/hr 1X ONCE 06/25/20 19:30 06/25/20 20:29 DC 06/25/20 19:42 1,000 MLS/HR Allergies: Allergies: Allergies Coded Allergies Type Severity Reaction Last Updated Verified No Known Drug Allergies 09/16/13 No Physical Exam: PE: See Above Constitutional: Well developed, well nourished, no acute distress, non-toxic appearance. [] HENT: Normocephalic, atraumatic, bilateral external ears normal, nose normal. [] Eyes: PERRLA, EOMI, conjunctiva normal, no discharge. [] Neck: Normal range of motion, no stridor. [] Cardiovascular:Heart rate regular rhythm Lungs & Thorax: Respirations even and unlabored, no retractions, no respiratory distress Abdomen: soft, LUQ and LLQ TTP, no rebound tenderness, no guarding, no palpable mass, no pulsatile mass Skin: Warm, dry, no erythema, no rash. [] Extremities: No cyanosis, ROM intact, no edema. [] Neurologic: Alert and oriented X 3, no focal deficits noted. [] Psychologic: Affect normal, judgement normal, mood normal. [] Current Patient Data: Labs: Laboratory Tests Test 06/25/20 18:27 06/25/20 18:28 06/25/20 19:30 06/25/20 21:08 Urine Collection Type Unknown Urine Color Yellow Urine Clarity Clear Urine pH 7.0 (<5.0-8.0) Urine Specific [place] 1.015 (1.000-1.030) Urine Protein Negative mg/dL (NEG-TRACE) Urine Glucose (UA) Negative mg/dL (NEG) Urine Ketones (Stick) Negative mg/dL (NEG) Urine Blood Negative (NEG) Urine Nitrite Negative (NEG) Urine Bilirubin Negative (NEG) Urine Urobilinogen Dipstick 0.2 mg/dL (0.2 mg/dL) Urine Leukocyte Esterase Negative (NEG) Urine RBC 0 /HPF (0-2) Urine WBC 0 /HPF (0-4) Urine Squamous Epithelial Cells Mod /LPF Urine Bacteria 0 /HPF (0-FEW) POC Urine HCG, Qualitative Hcg negative (Negative) Sodium Level 141 mmol/L (136-145) Potassium Level 4.3 mmol/L (3.5-5.1) Chloride Level 104 mmol/L (98-107) Carbon Dioxide Level 26 mmol/L (21-32) Anion Gap 11 (6-14) Blood Urea Nitrogen 6 mg/dL (7-20) L Creatinine 0.7 mg/dL (0.6-1.0) Estimated GFR (Cockcroft-Gault) 115.9 BUN/Creatinine Ratio 9 (6-20) Glucose Level 86 mg/dL (70-99) Calcium Level 8.4 mg/dL (8.5-10.1) L Magnesium Level 1.9 mg/dL (1.8-2.4) Total Bilirubin 0.1 mg/dL (0.2-1.0) L Aspartate Amino Transferase (AST) 12 U/L (15-37) L Alanine Aminotransferase (ALT) 18 U/L (14-59) Alkaline Phosphatase 91 U/L (46-116) Total Protein 6.9 g/dL (6.4-8.2) Albumin 3.2 g/dL (3.4-5.0) L Albumin/Globulin Ratio 0.9 (1.0-1.7) L Lipase 115 U/L (73-393) White Blood Count 9.8 x10^3/uL (4.0-11.0) Red Blood Count 3.93 x10^6/uL (3.50-5.40) Hemoglobin 11.5 g/dL (12.0-15.5) L Hematocrit 35.2 % (36.0-47.0) L Mean Corpuscular Volume 90 fL (79-100) Mean Corpuscular Hemoglobin 29 pg (25-35) Mean Corpuscular Hemoglobin Concent 33 g/dL (31-37) Red Cell Distribution Width 16.5 % (11.5-14.5) H Platelet Count 222 x10^3/uL (140-400) Neutrophils (%) (Auto) 56 % (31-73) Lymphocytes (%) (Auto) 33 % (24-48) Monocytes (%) (Auto) 7 % (0-9) Eosinophils (%) (Auto) 4 % (0-3) H Basophils (%) (Auto) 1 % (0-3) Neutrophils # (Auto) 5.5 x10^3/uL (1.8-7.7) Lymphocytes # (Auto) 3.2 x10^3/uL (1.0-4.8) Monocytes # (Auto) 0.6 x10^3/uL (0.0-1.1) Eosinophils # (Auto) 0.4 x10^3/uL (0.0-0.7) Basophils # (Auto) 0.1 x10^3/uL (0.0-0.2) Laboratory Tests 06/25/20 21:08 Laboratory Tests 06/25/20 19:30 Vital Signs: Vital Signs Date Time Temp Pulse Resp B/P (MAP) Pulse Ox O2 Delivery O2 Flow Rate FiO2 06/25/20 21:59 69 20 112/62 (79) 99 Room Air 06/25/20 19:26 98.5 98.5 EKG: EKG: [] Heart Score: C/O Chest Pain: No Risk Scores: Score 0 - 3: 2.5% MACE over next 6 weeks - Discharge Home Score 4 - 6: 20.3% MACE over next 6 weeks - Admit for Clinical Observation Score 7 - 10: 72.7% MACE over next 6 weeks - Early Invasive Strategies Radiology/Procedures: Radiology/Procedures: PROCEDURE: CT ABD PELV W/ IV CONTRST ONLY Exam: CT of abdomen and pelvis with contrast INDICATION: Left-sided abdominal pain for 2 days TECHNIQUE: Sequential axial images through the abdomen and pelvis obtained following the administration of 75 mL of Isovue-370 IV contrast. Sagittal and coronal reformatted images were reconstructed from the axial data and reviewed. Exposure: One or more of the following in the visualized dose reduction techniques were utilized for this examination: 1. Automated exposure control 2. Adjustment of the MA and/or KV according to patient size 3. Use of iterative of reconstructive technique Comparisons: 01/16/2020 FINDINGS: Heart size is normal. No pericardial effusion. Visualized lung bases are clear. No pleural effusion. Liver, spleen, pancreas, gallbladder and adrenals are unremarkable. No perinephric inflammation or hydronephrosis. No renal or ureteral calculi are identified. Bladder is decompressed not well evaluated. Uterus is nonenlarged. No abnormal adnexal mass. Diverticulosis is noted at the sigmoid colon. There is mild adjacent fat stranding also noted. Remainder of the large and small bowel are unremarkable. Appendix is nonidentified. No free intra-abdominal air or fluid. No obstruction. Abdominal aorta aorta has a normal course and caliber. Abdominal vasculature is patent. No enlarged intra-abdominal lymph nodes are identified. No suspicious osseous lesions or acute fractures. IMPRESSION: 1. Findings of diverticulitis at the sigmoid colon. No evidence for perforation or adjacent abscess. 2. Cystic lesions at the adnexa bilaterally greater on the left measuring 2.8 cm in diameter. Electronically signed by: Foster Lam MD (06/25/2020 9:14 PM) [facility] Course & Med Decision Making: Course & Med Decision Making Pertinent Labs and Imaging studies reviewed. (See chart for details) 35 year-old female presents emergency department with complaints of left-sided abdominal pain, nausea, and vomiting that began yesterday evening. CT revealed diverticulitis, no bowel obstruction. CBC revealed mild anemia, CMP revealed no acute findings, UA is unremarkable, urine test is negative. Patient was given a liter normal saline, 4 mg of Zofran, and 2 doses of 50 mcg of fentanyl. She reported feeling better after these medications. Prescriptions were written for Flagyl 500 p.o. 3 times daily x10 days, Cipro 500 p.o. twice daily x10 days, Zofran 4 mg tablets as needed, and hydrocodone 5/325 mg tablets p.o. every 6 hours as needed for pain. Vital signs are stable throughout her stay, patient encouraged to follow-up with her primary care doctor in the next 1 to 2 days, return to the ER symptoms worsen or fever develops. Patient verbalized an understanding of home care, medications, follow-up, and return to ED instructions and was in agreement with the plan of care. [] Dragon Disclaimer: Dragon Disclaimer: This electronic medical record was generated, in whole or in part, using a voice recognition dictation system. Departure Departure Impression: Primary Impression: Diverticulitis Disposition: 01 HOME / SELF CARE / HOMELESS Condition: STABLE Referrals: BECKY WALKER MD (PCP) Patient Instructions: Diverticulitis, [id number] Additional Instructions: Fill prescriptions and use them as directed. Recommend clear fluids for the next 24 hours. Then you may advance to bland foods such as bananas, rice, applesauce, and dry toast. Follow-up with your primary care doctor in the next 1-2 days. Return to the emergency room if your symptoms worsen or if fever develops. Scripts Hydrocodone Bit/Acetaminophen (HYDROCODONE-APAP 5-325 ) 1 Tab Tablet 1 TAB PO PRN Q6HRS PRN for PAIN for 3 Days, #12 TAB 0 Refills Prov: TOMÁS GILLILAND [employer] 06/25/20 Ondansetron (ONDANSETRON ODT) 4 Mg Tab.rapdis 1 TAB PO PRN Q6-8HRS PRN for NAUSEA/VOMITING for 4 Days, #16 TAB 0 Refills Prov: TOMÁS GILLILAND APRN 06/25/20 Ciprofloxacin Hcl (CIPRO) 500 Mg Tablet 1 TAB PO BID for 10 Days, #20 TAB 0 Refills Prov: TOMÁS GILLILAND APRN 06/25/20 Metronidazole (FLAGYL) 500 Mg Tablet 500 MG PO TID for 10 Days, #30 TAB 0 Refills Prov: TOMÁS GILLILAND APRN 06/25/20 Attending Signature Attending Signature I have participated in the care of this patient and I have reviewed and agree with all pertinent clinical information above including history, exam, and recommendations. TOMÁS GILLILAND APRN Jun 25, 2020 20:44 ANNA PARRISH DO Jun 27, 2020 13:18
[2020-06-25 21:16] LABS: BASO # 0.1 x10^3/uL (0.0-0.2); BASO % 1 % (0-3); EOS # 0.4 x10^3/uL (0.0-0.7); EOS % 4 % (0-3); HEMATOCRIT 35.2 % (36.0-47.0); HEMOGLOBIN 11.5 g/dL (12.0-15.5); LYMPH # 3.2 x10^3/uL (1.0-4.8); LYMPH % 33 % (24-48); MEAN CORPUSCULAR HEMOGLOBIN 29 pg (25-35); MEAN CORPUSCULAR HGB CONC 33 g/dL (31-37); MEAN CORPUSCULAR VOLUME 90 fL (79-100); MONO # 0.6 x10^3/uL (0.0-1.1); MONO % 7 % (0-9); NEUT # 5.5 x10^3/uL (1.8-7.7); NEUT % 56 % (31-73); PLATELET COUNT 222 x10^3/uL (140-400); RED BLOOD COUNT 3.93 x10^6/uL (3.50-5.40); RED CELL DISTRIBUTION WIDTH 16.5 % (11.5-14.5); WHITE BLOOD COUNT 9.8 x10^3/uL (4.0-11.0)
--- NOTE | 2020-06-25 21:17 | RAD ---
Exam: CT of abdomen and pelvis with contrast INDICATION: Left-sided abdominal pain for 2 days TECHNIQUE: Sequential axial images through the abdomen and pelvis obtained following the administrati on of 75 mL of Isovue-370 IV contrast. Sagittal and coronal reformatted images were reconstructed fro m the axial data and reviewed. Exposure: One or more of the following in the visualized dose reduction techniques were utilized for this examination: 1. Automated exposure control 2. Adjustment of the MA and/or KV according to patient size 3. Use of iterative of reconstructive technique Comparisons: 01/16/2020 FINDINGS: Heart size is normal. No pericardial effusion. Visualized lung bases are clear. No pleural effusion. Liver, spleen, pancreas, gallbladder and adrenals are unremarkable. No perinephric inflammation or hydronephrosis. No renal or ureteral calculi are identified. Bladder is decompressed not well evaluated. Uterus is nonenlarged. No abnormal adnexal mass. Diverticulosis is noted at the sigmoid colon. There is mild adjacent fat stranding also noted. Remain nolan of the large and small bowel are unremarkable. Appendix is nonidentified. No free intra-abdominal air or fluid. No obstruction. Abdominal aorta aorta has a normal course and caliber. Abdominal vasculature is patent. No enlarged intra-abdominal lymph nodes are identified. No suspicious osseous lesions or acute fractures. IMPRESSION: 1. Findings of diverticulitis at the sigmoid colon. No evidence for perforation or adjacent abscess. 2. Cystic lesions at the adnexa bilaterally greater on the left measuring 2.8 cm in diameter. Electronically signed by: Foster Lam MD (06/25/2020 9:14 PM) [facility]
[2020-06-25] MEDS ORDERED: CIPR500T94 PO (21:30)
[2020-06-25] MEDS ORDERED: METR500T PO (21:30)
[2020-06-25] MEDS ORDERED: ONDA4TAB12 PO (21:30)
[2020-06-25] MEDS ORDERED: HYDR-2761 PO (21:30)
[2020-06-25 21:59] VITALS: BP 112/62
== END 2020-06-25 22:10 | disposition home or self-care (01) ==
LOC: ER 17:55
DX: K57.32 Diverticulitis of large intestine without perforation or abscess without bleeding (principal); R11.2 Nausea with vomiting, unspecified; R10.9 Unspecified abdominal pain; E11.9 Type 2 diabetes mellitus without complications; F17.200 Nicotine dependence, unspecified, uncomplicated; Z98.890 Other specified postprocedural states
CPT/HCPCS: 36415; 74177; 80053; 81001; 81025; 83690; 83735; 85025; 96361; 96374; 96375; 96376; 99285; J2405; J3010; J7030; Q9967

== ENCOUNTER 2020-07-18 18:42 | Emergency (ER) | payer OTHER ==
[~2020-07-18] VITALS: Ht 162.6 cm; Wt 70.0 kg
[~2020-07-18 18:42] MED LIST changes: +CIPR500T94 PO; +ONDA4TAB12 PO
[2020-07-18 19:33] LABS: BASO % 0 % (0-3); EOS # 0.1 x10^3/uL (0.0-0.7); EOS % 1 % (0-3); HEMATOCRIT 35.7 % (36.0-47.0); HEMOGLOBIN 11.9 g/dL (12.0-15.5); LYMPH # 2.5 x10^3/uL (1.0-4.8); LYMPH % 19 % (24-48); MEAN CORPUSCULAR HEMOGLOBIN 29 pg (25-35); MEAN CORPUSCULAR HGB CONC 33 g/dL (31-37); MEAN CORPUSCULAR VOLUME 88 fL (79-100); MONO # 0.3 x10^3/uL (0.0-1.1); MONO % 2 % (0-9); NEUT # 10.5 x10^3/uL (1.8-7.7); NEUT % 79 % (31-73); PLATELET COUNT 279 x10^3/uL (140-400); RED BLOOD COUNT 4.06 x10^6/uL (3.50-5.40); RED CELL DISTRIBUTION WIDTH 16.5 % (11.5-14.5); WHITE BLOOD COUNT 13.4 x10^3/uL (4.0-11.0)
[2020-07-18 19:34] LABS: BILIRUBIN,URINE NEGATIVE (NEG); CLARITY,URINE CLEAR; COLOR,URINE YELLOW; NITRITE,URINE NEGATIVE (NEG); PH,URINE 7.5 (<5.0-8.0); PROTEIN,URINE NEGATIVE (NEG-TRACE); UROBILINOGEN,URINE 0.2 mg/dL (0.2 mg/dL)
--- NOTE | 2020-07-18 19:39 | PHYS DOC ---
Past Medical History Past Medical History: Diabetes-Type II, Other Additional Past Medical Histor: CHRONIC HIVES, OVARIAN CYSTS Past Surgical History: Smoking Status: Current Every Day Smoker Alcohol Use: Occasionally Drug Use: None General Adult EDM: Chief Complaint: ABDOMINAL PAIN HPI: HPI: Patient is a 35 year old female who states she has a past medical history of diverticulitis presents with a chief complaint of left lower quadrant abdominal pain. Patient states she was diagnosed with diverticulitis 2 to 3 weeks ago. She was placed on antibiotics which she finished. Patient states her abdominal pain completely resolved at that time. Patient states today abdominal pain returned. Pain is located in the left lower quadrant with radiation superiorly to the umbilicus. Patient has associated nausea she denies any vomiting. Patient admits to having loose stools but denies any diarrhea. Patient denies any fever chills cough chest pain or shortness of breath. Review of Systems: Review of Systems: Review of systems: Constitutional symptoms- No fever, no chills. Eyes- No Discharge, No Visual Loss Respiratory symptoms- No shortness of breath, No wheezing, No Dyspnea on Exertion Cardiovascular Systems; No chest pain, No Palpitations, No syncope Gastrointestinal symptoms: Positive abdominal pain, Positive nausea, no vomiting or diarrhea. Genitourinary symptoms: No dysuria. Musculoskeletal symptoms: No back pain No extremity pain. NEUROLOGICAL Symptoms: No headache, no generalized weakness; No focal Weakness Heart Score: C/O Chest Pain: N/A Risk Factors: Risk Factors: DM, Current or recent (<one month) smoker, HTN, HLP, family history of CAD, obesity. Risk Scores: Score 0 - 3: 2.5% MACE over next 6 weeks - Discharge Home Score 4 - 6: 20.3% MACE over next 6 weeks - Admit for Clinical Observation Score 7 - 10: 72.7% MACE over next 6 weeks - Early Invasive Strategies Allergies: Allergies: Allergies Coded Allergies Type Severity Reaction Last Updated Verified No Known Drug Allergies 09/16/13 No Physical Exam: PE: General: alert, no acute distress. Skin: warm, dry and intact. Head:: Normocephalic, atraumatic. Neck: Trachea midline. Eyes: EOMI, Normal conjunctiva, No drainage CARDIOVASCULAR: Regular rate and rhythm RESPIRATORY: No respiratory distress Back: Full range of motion. MUSCULOSKELETAL: Full range of motion of bilateral upper and lower extremities. GASTROINTESTINAL: Abdomen soft without rebound or guarding. Tenderness to left lower NEUROLOGICAL: Alert and noted to person, place and time. No neurological deficits observed Psychiatric: Cooperative. Normal judgment EKG: EKG: [] Radiology/Procedures: Radiology/Procedures: [] Impression: IMPRESSION: 1. Stranding and edema noted in the pelvis surrounding the sigmoid colon and uterus. Findings are nonspecific may relate to colitis or pelvic inflammatory disease. Correlate with symptomatology and physical exam. 2. Diverticulosis at the sigmoid and descending colon without evidence of acute diverticulitis. Course & Med Decision Making: Course & Med Decision Making Patient was evaluated for chief complaint. Work-up consisted of laboratory analysis and radiologic imaging. Results reviewed and discussed with patient. Lab no significant lab abnormalities. CT imaging radiologist impression inflammation around sigmoid colon and pelvis differential diagnosis to include a colitis versus PID. Treatment included Toradol Zofran IV fluids and Rocephin. Patient also be discharged home on doxycycline and Flagyl and hydrocodone. Dragon Disclaimer: Dragon Disclaimer: This electronic medical record was generated, in whole or in part, using a voice recognition dictation system. Departure Departure Impression: Primary Impression: Abdominal pain Additional Impressions: Pelvic inflammatory disease (PID) Colitis Disposition: HOME / SELF CARE / HOMELESS Condition: STABLE Referrals: BECKY WALKER MD (PCP) Patient Instructions: Abdominal Pain, Colitis, Pelvic Inflammatory Disease Scripts Hydrocodone/Acetaminophen (Hydrocodone-Acetamin 5-325 mg) 1 Each Tablet 1 EACH PO Q4-6HRS for 10 Days, #14 TAB Prov: YOLANDA BARGER I DO 07/18/20 Metronidazole (FLAGYL) 500 Mg Tablet 500 MG PO BID for 10 Days, #20 TAB Prov: YOLANDA BARGER I DO 07/18/20 Doxycycline Hyclate (DOXYCYCLINE HYCLATE) 100 Mg Tablet 1 TAB PO BID, #20 TAB Prov: YOLANDA BARGER I DO 07/18/20 YOLANDA BARGER DO July 18, 2020 19:39
[2020-07-18 19:40] LABS: BACTERIA,URINE 0 /HPF (0-FEW); RBC,URINE 0 /HPF (0-2); WBC,URINE OCC /HPF (0-4)
[2020-07-18 19:41] LABS: CALCIUM 8.2 mg/dL (8.5-10.1); CREATININE 0.7 mg/dL (0.6-1.0); GFR 115.9; POTASSIUM 3.9 mmol/L (3.5-5.1)
[2020-07-18 19:47] LABS: ALBUMIN 3.3 g/dL (3.4-5.0); ALBUMIN/GLOBULIN RATIO 0.9 (1.0-1.7); TOTAL BILIRUBIN 0.2 mg/dL (0.2-1.0)
[2020-07-18] MEDS ORDERED: CONTRAST GIVEN. MC PRN (20:15)
[2020-07-18] MEDS ORDERED: IOHEXOL 300 MG/ML 100ML VIAL. IV ONE (20:15)
[2020-07-18] MEDS ORDERED: IV NORMAL SALINE 1000ML BAG 1,000 ML IV ONE (20:45)
[2020-07-18] MEDS ORDERED: KETOROLAC 30 MG/ML VIAL. IVP ONE (20:45)
[2020-07-18] MEDS ORDERED: ONDANSETRON PF 4 MG/2 ML VIAL. IVP ONE (20:45)
--- NOTE | 2020-07-18 20:47 | RAD ---
Exam: CT of abdomen and pelvis with contrast INDICATION: Abdominal pain, left lower quadrant TECHNIQUE: Sequential axial images through the abdomen and pelvis obtained following the administrati on of 95 mL of Isovue-370 IV contrast. Sagittal and coronal reformatted images were reconstructed fro m the axial data and reviewed. Exposure: One or more of the following in the visualized dose reduction techniques were utilized for this examination: 1. Automated exposure control 2. Adjustment of the MA and/or KV according to patient size 3. Use of iterative of reconstructive technique Comparisons: 06/25/2020 FINDINGS: Heart size is normal. No pericardial effusion. Strandy opacities at dependent portion lungs likely re presenting atelectasis. No pleural effusion. Liver, spleen, pancreas, gallbladder and adrenals are unremarkable. No perinephric inflammation or hydronephrosis. No renal or ureteral calculi are identified. Bladder is distended and not well evaluated. Uterus not enlarged. No abnormal adnexal mass. There is stranding and edema noted in the pelvis surrounding the uterus and sigmoid colon. Remainder large and small bowel are unremarkable. No free intra-abdominal air or fluid. No obstruction. Abdominal aorta has a normal course and caliber. Abdominal vasculature is patent. No enlarged intra-abdominal lymph nodes are identified. No suspicious osseous lesions or acute fractures. IMPRESSION: 1. Stranding and edema noted in the pelvis surrounding the sigmoid colon and uterus. Findings are no nspecific may relate to colitis or pelvic inflammatory disease. Correlate with symptomatology and phy sical exam. 2. Diverticulosis at the sigmoid and descending colon without evidence of acute diverticulitis. Electronically signed by: Foster Lam MD (07/18/2020 8:45 PM) [facility]
[2020-07-18] MEDS ORDERED: cefTRIAXone IM 500 MG VIAL. IM ONE (21:00)
[2020-07-18] MEDS ORDERED: HYDR-2759 PO (21:05)
[2020-07-18] MEDS ORDERED: METR500T PO (21:05)
[2020-07-18] MEDS ORDERED: DOXY100T PO (21:05)
[2020-07-18] MEDS ORDERED: MORPHINE SULFATE 2 MG/ML VIAL. IV ONE (22:00)
[2020-07-18 22:14] VITALS: BP 112/58
== END 2020-07-18 22:29 | disposition home or self-care (01) ==
LOC: ER 18:42
DX: N73.9 Female pelvic inflammatory disease, unspecified (principal); K52.9 Noninfective gastroenteritis and colitis, unspecified; E11.9 Type 2 diabetes mellitus without complications; F17.200 Nicotine dependence, unspecified, uncomplicated
CPT/HCPCS: 36415; 74177; 80053; 81001; 81025; 85025; 96361; 96372; 96374; 96375; 99285; J0696; J1885; J2270; J2405; J7030; Q9967